=== PATIENT | female | born 1965 | race Caucasian/White ===

== ENCOUNTER 2022-03-14 11:44 | Emergency (ER) | payer BC, SELFPAY ==
[2022-03-14 11:47] VITALS: BP 147/88; PULSE 96; RESP 16; TEMP 36.3; O2SAT 98; BMI 31.8
[2022-03-14 11:58] VITALS: BP 137/89; PULSE 100; RESP 16; O2SAT 99
--- NOTE | 2022-03-14 12:21 | EKG12_ITS ---
Test Reason : DIZZINESS Blood Pressure : / mmHG Vent. Rate : 080 BPM Atrial Rate : 080 BPM P-R Int : 140 ms QRS Dur : 080 ms QT Int : 374 ms P-R-T Axes : 043 052 024 degrees QTc Int : 431 ms Normal sinus rhythm Normal ECG Confirmed by TYRONE DESIR, MELECIO ([id number]), features editor ALYSE CASAS ([id number]) on 03/17/2022 10:59:51 AM Referred By: Confirmed By:MELECIO HANSEN MD
--- NOTE | 2022-03-14 12:21 | CT_ITS ---
STUDY: CT BRAIN WITHOUT CONTRAST REASON FOR EXAM: Female, 56 years old. Dizziness RADIATION DOSAGE (If Supplied By Facility): CTDIvol = ( 44.99 ) mGy, DLP = ( 762.36 ) mGycm TECHNIQUE: Transaxial CT imaging of the brain was performed without administration of intravenous contrast material. Individualized dose optimization techniques were used for this CT. COMPARISON: No relevant priors. FINDINGS: Normal soft tissue structures. There is hyperostosis frontalis internus. Normal size ventricles and extra-axial spaces for the patient''s age. Normal white matter tracts of the cerebral hemispheres. Normal basal ganglia and thalami. Normal brainstem. Normal cerebellum. There is no intracranial hemorrhage. There are no findings of an acute ischemic infarction. There is partial opacification of the inferior aspect of the left maxillary sinus. Mucosal thickening of the ethmoid sinuses. CT/Brain/Head without Contrast IMPRESSION: Normal unenhanced CT scan of the brain. Partial opacification of the inferior aspect of the left maxillary sinus and mucosal thickening of the ethmoid sinuses. Electronically Signed: David Singleton MD at 12:52 EDT ,
--- NOTE | 2022-03-14 12:22 | EX.ED.DYSGE1 ---
HPI History of Present Illness Chief Complaint: Dizziness Informant: patient Onset/Context/Timing Onset: Today Current Severity: Mild Maximum Severity: Mild Narrative Narrative: 36-year-old female complaining of room spinning dizziness with associated nausea. She has had some intermittent headaches recently. No falls or head trauma. She really denies any significant past medical history. She is on no blood thinners. States her daughter has had vertigo multiple times in the past. Patient's symptoms started 715 this morning. Said when she went to bed last night she felt fine. Has not been sick for the last several days. Says it is a room spinning dizziness that is worse with movement of her head. Says she has hot flashes with it. Associated nausea no vomiting. No diarrhea. No trouble moving her arms or legs. She also felt like her left ear has been clogged lately. Prior similar symptoms: No Recent Illness/Hospitalization: No PFSH PFSH Medical History Abdominal hernia Carpal tunnel syndrome on both sides Medical History no medical history Home Medications Bioflex 03/14/22 [History Last Taken Unknown] Multi Vitamin 03/14/22 [History Last Taken Unknown] calcium-vitamin D3 03/14/22 [History Last Taken Unknown] meclizine 25 mg chewable tablet (Antivert) 25 mg PO TID #20 tabs 03/14/22 [Rx Last Taken Unknown] ondansetron 4 mg disintegrating tablet 4 mg PO Q6H #7 tabs 03/14/22 [Rx Last Taken Unknown] vitamin B complex 03/14/22 [History Last Taken Unknown] Allergy/AdvReac Type Severity Reaction Status Date / Time codeine Allergy Hives Verified 03/14/22 11:46 influenza virus vaccine ts Allergy Other Verified 03/14/22 11:46 [id number] (36 mos,up) [From Fluarix] Penicillins Allergy Hives Verified 03/14/22 11:46 prednisone Allergy Hives Verified 03/14/22 11:46 Surgical History H/O dilation and curettage H/O: hysterectomy Tubal ligation status Social History Smoking Status: Never smoker ROS ROS ED ROS Narrative Headaches. Room spinning dizziness. Nausea. Review of Systems ROS Unobtainable: Denies due to encephalopathy Eyes Eyes: Denies blurry vision ENT ENT ED: Denies ear pain Cardiovascular Cardiovascular: Denies chest pain Respiratory/Chest Respiratory/Chest: Denies cough Gastrointestinal Gastrointestinal: Denies abdominal pain Genitourinary Genitourinary ED: Denies dysuria Musculoskeletal Musculoskeletal: Denies arthralgias Neurologic Neurologic: Reports headache(s) Psychiatric Psychiatric: Denies anxiety Endocrine Endocrinology: Denies cold intolerance Hematologic/Lymphatic Hematologic/Lymphatic: Reports none Allergic/Immunologic Allergic/Immunologic ED: Denies mouth swelling or tongue swelling EXAM Physical Exam Narrative Exam Narrative: 56-year-old female vital signs are stable afebrile. H EENT exam unremarkable atraumatic. Pupils round reactive light. No facial droop. Normal speech. Neck nontender no lymphadenopathy. Lungs clear to auscultation. Heart regular rhythm rate about 95 no murmur. Chest were nontender. Abdomen soft nontender. Moving all 4 extremities. 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 Dorsi plantarflexion intact. No drift. Fingertip to nose within normal limits. Neurologically she is awake alert with no focal motor deficits. Positive Hallpike. NIH score is 0. Const Vital Signs: 03/14/22 11:47 03/14/22 11:58 03/14/22 12:00 Temperature 97.4 F L Temperature Source Temporal Pulse Rate 96 100 Respiratory Rate 16 16 Respiratory Effort Normal Non-Labored Respiratory Pattern Normal Blood Pressure 147/88 H 137/89 H Blood Pressure Mean 107 105 Pulse Ox 98 99 Oxygen Delivery Method Room Air Room Air 03/14/22 13:00 03/14/22 15:00 Temperature Temperature Source Pulse Rate 77 74 Respiratory Rate 11 L 14 Respiratory Effort Respiratory Pattern Blood Pressure 108/75 120/74 Blood Pressure Mean 86 89 Pulse Ox 98 98 Oxygen Delivery Method Room Air Room Air Positive well nourished and well developed; Negative for cachectic, contractures or unkempt General Appearance ED: well developed and NAD; Negative for unkempt, cachectic, contractures, cyanotic or diaphoretic Nutritional Appearance: Negative for cachectic HEENT Reports moist mucous membranes Negative for trauma or tenderness Eyes PERRL and EOMs intact bilaterally General Eye ED: Negative for pale conjunctiva or scleral icterus Neck no lymphadenopathy, supple and no JVD General: Negative for tenderness Chest Wall inspection of chest normal and palpation of chest normal Chest: Negative for other Resp normal respiratory effort and clear to auscultation bilaterally Effort and Inspection: Negative for retractions Auscultation: Negative for rales, rhonchi or wheezes Cardio regular rate, regular rhythm, S1 normal heart sound, S2 normal heart sound and no murmurs Palpation: Negative for palpable S3 Rate: Negative for bradycardia Rhythm: Negative for abnormal rhythm GI normal to inspection, nondistended, normoactive bowel sounds, non-tender, non-distended and no masses Inspection: Negative for abdominal distention Auscultation: normoactive bowel sounds Palpation: soft; Negative for tender Back/Spine no CVA tenderness General Back: Negative for CVA tenderness Cervical Spine: Negative for cervical spine tenderness Thoracic Spine / Upper Back: Negative for thoracic spinal tenderness Lumbar Spine / Lower Back: Negative for lumbar spinal tenderness Extremity normal to inspection General Extremety ED: Negative for edema or tenderness General Extremity: Negative for edema Neuro oriented x3, CN's II-XII intact bilaterally and no sensory deficits noted Sensorium / Orientation: alert; Negative for orientation impaired, lethargic or stuporous Motor Exam: strength 5/5 throughout Psych mental status grossly normal Appearance: Negative for unkempt Attitude: No agitated Skin no rashes or lesions noted and no wounds General Skin Exam: Negative for elasticity normal Lesions: No lesion noted Rashes: No rashes noted Trauma: Negative for abrasion Wounds: Negative for wounds noted MDM MDM MDM Narrative Medical decision making narrative: 56-year-old female with vertigo-like symptoms. She also has cerumen impaction in both ears. Debrox to be placed ears will be irrigated. She will go undergo work-up due to her recent headaches and vertigo-like symptoms. Exam otherwise is benign. She will be treated with Ativan for her dizziness. Repeat exam at 335 patient doing well. Her dizziness is improved. Nurse placed Debrox irrigated both ears I then tried myself and was able get a fair amount of wax on the right and some on the left the left has a lot more wax than the right. She will follow-up with ENT to have the cerumen cleaned out. She will be placed on Antivert for vertigo and Zofran for nausea. I explained to her and her family that the wax impaction may or may not be related to her vertigo or could be that she just has vertigo and is unrelated. Lab Data Attestation: I reviewed the patient's lab results. Lab results narrative: CBC normal white count of 5. H&H of 13.9 and 40. Electrolytes show a gap of 5 normal BUN and creatinine. Glucose of 112. CAT scan of the brain shows no acute abnormality as read by the radiologist. Labs: Laboratory Results - last 24 hr 03/14/22 03/14/22 12:30 12:30 WBC 5.0 RBC 4.40 Hgb 13.9 Hct 40.5 MCV 92.0 MCH 31.6 MCHC 34.3 RDW Std Deviation 42.4 RDW Coeff of Mey 12.6 Plt Count 260 MPV 10.5 Immature Gran % (Auto) 0.800 Neut % (Auto) 61.9 Lymph % (Auto) 27.4 [place] % (Auto) 8.5 Eos % (Auto) 1.0 Baso % (Auto) 0.4 Absolute Neuts (auto) 3.1 Absolute Lymphs (auto) 1.36 Nucleated RBC % 0 Sodium 141 Potassium 4.3 Chloride 108 H Carbon Dioxide 28.0 Anion Gap 5 BUN 16 Creatinine 0.83 Estim Creat Clear Calc 72.54 Est GFR (MDRD) Af Amer 92 Est GFR (MDRD) Non-Af 76 BUN/Creatinine Ratio 19.3 Glucose 112 H Calcium 9.6 Radiography Diagnostic Testing: Clinical Impression(s) from Imaging Studies Brain CT 03/14/22 12:21 IMPRESSION: Normal unenhanced CT scan of the brain. Partial opacification of the inferior aspect of the left maxillary sinus and mucosal thickening of the ethmoid sinuses. Electronically Signed: David Singleton MD at 12:52 EDT , Rhythm Strip Rhythm Strip: Sinus Rhythm Rate: 80 Ectopy: None EKG Initial EKG: Attestation: I personally reviewed and interpreted this EKG as follows: Interpretation: Sinus Rhythm and No Acute Injury Pattern Comments: Normal sinus rhythm rate of 80 no acute signs of PR or ischemia. Discharge Plan Triage Chief Complaint: Dizziness ED Provider: Reginald Nolasco Dx/Rx/DC Orders Clinical Impression: Vertigo, Impacted ear wax, Dizziness Instructions: Impacted Earwax, ED BPV Vertigo Prescriptions: New meclizine [Antivert] 25 mg tablet,chewable 25 mg PO TID Qty: 20 0RF ondansetron 4 mg tablet,disintegrating 4 mg PO Q6H Qty: 7 0RF No Action Bioflex Multi Vitamin calcium-vitamin D3 vitamin B complex Primary Care Provider: Care Physician,No Primary Referrals: Jonas Miller MD [Med Staff - Active Staff] - As soon as possible [facility] Doctor,Out of [Non-Staff] - Activity Restrictions/Additional Instructions: You have vertigo. We will treat you with a medication called Antivert for that. Zofran if you needed for nausea. If you do not you do not have to use the Zofran. You also have significant earwax impaction. The right side has been fairly cleared out. There is still a lot in the left. Use eardrops either Debrox or Cerumenex daily. He can get those [id number] at any pharmacy. This will help dry up and clear out the wax. Also follow-up with Dr. Jonas Miller who is an ear nose and throat doctor across the street. They can recheck your ears and clean them out. They also can do procedures to help with the vertigo if its not improving. Disposition Disposition: Home, Self Care
[2022-03-14] MEDS: LORazepam 2 MG/ML Syringe 1 MG IV (12:32)
[2022-03-14 12:47] LABS: Absolute Lymphocyte Count 1.36 X10^3/uL (0.83-4.51); Absolute Neutrophil Count 3.1 X10^3/uL (2.0-7.7); Basophil# 0.02 X10^3/uL; Basophil% 0.4 % (0-1); Eosinophil# 0.05 X10^3/uL; Hematocrit 40.5 % (37-47); Hemoglobin 13.9 g/dL (12.0-15.0); Lymphocyte # 1.36 X10^3/ul (0.83-4.51); Lymphocyte % 27.4 % (19-41); Mean Corp Hgb Conc 34.3 g/dL (32-36); Mean Corpuscular Hgb 31.6 pg (27.0-32.0); Mean Platelet Vol. 10.5 fl (6.2-12.0); Monocyte# 0.42 X10^3/uL; Monocyte% 8.5 % (0-10); NRBC Flagged by Analyzer 0 % (0-5); Neutrophil # 3.08 X10^3/uL (2.7-7.7); Neutrophil % 61.9 % (47-70); Platelet Count 260 K/mm3 (150-450); RBC Distribution Width CV 12.6 % (11.6-14.6); RBC Distribution Width SD 42.4 fl (35.1-43.9)
[2022-03-14 12:58] LABS: Anion Gap 5 (5-15); BUN 16 mg/dL (7-18); BUN/Creat Ratio 19.3 RATIO (10-20); Calcium,Total 9.6 mg/dL (8.5-10.1); Chloride 108 mmol/L (98-107); Creatinine, Serum 0.83 mg/dL (0.55-1.02); EST Glomerular Filtration Rate 76 mL/min (>60); Est Glom Filt Rate - Afr Amer 92 mL/min (>60); Estimated Creatinine Clearance 72.54 ml/min; Glucose 112 mg/dL (74-106); Potassium 4.3 mmol/L (3.5-5.1); Sodium Level 141 mmol/L (136-145)
[2022-03-14 13:00] VITALS: BP 108/75; PULSE 77; RESP 11; O2SAT 98
[2022-03-14] MEDS: Carbamide Peroxide 15 ML Bottle 5 DRP OTIC (13:15)
--- NOTE | 2022-03-14 14:21 | CM.ED ---
SW Note Referral Source: Case Find Referral Reason: No Primary Care Physician (PCP) SW reviewed chart and noted that patient has no PCP. SW provided patient with list of [facility] and [facility] Physician List for reference. Patient has just moved from [place] and wants a local MD. No other issues or concerns voiced at this time. SW remains available for any additional needs. Plan: Provided patient with PCP information Bouchra MIDDLETON
[2022-03-14 15:00] VITALS: BP 120/74; PULSE 74; RESP 14; O2SAT 98
[2022-03-14 16:01] VITALS: BP 120/74; PULSE 71
== END 2022-03-14 16:01 | disposition home or self-care (01) ==
PROVIDERS: Emergency Provider Emergency Medicine; Visit Provider Emergency Medicine
DX: R42 Dizziness and giddiness (principal); H61.23 Impacted cerumen, bilateral; R51.9 Headache, unspecified
CPT/HCPCS: 70450; 80048; 85025; 93005; 96374; 99285; A4216

== ENCOUNTER 2025-06-17 17:34 | Emergency (ER) | payer BC, SELFPAY ==
[2025-06-17 17:36] VITALS: BP 141/83; PULSE 87; RESP 18; TEMP 36.2; O2SAT 98; BMI 29.0
[2025-06-17 17:45] VITALS: O2SAT 96
--- OUTSIDE RECORDS SUMMARY | 2025-06-17 17:56 | XMS RPT_ITS | CCD ---
Author Organization [facility] Inform ion Partnership [facility] Care Team Providers Care Prosthetist Name Role Phone VAGNIJAZ, AIDE L Unavailable Unavailable VAGNIERAIDE L Unavailable Unavailable STATKRISTA TAYLOR Unavailable Unavailable Serve, Oliverio Velasco Primary Care Provider GARRETT CASAS Referring Unavailable SERVE, OLIVERIO VELASCO Primary Care Unavailable GARRETT CASAS Admitting Unavailable SERVEOLIVERIO Primary Care Unavailable Serve, Oliverio Velasco Primary Care Provider OLIVERIO CHANG Primary Care Unavailable PATRICIA HALL Attending Unavailable Serve DO, Oliverio Velasco Primary Care Provider JAYASHREE BERGER Attending Unavailable SERVE, OLIVERIO VELASCO Primary Care Unavailable Reginald Nolasco Attending Unavailable Care Physician, No Primary Primary Care Unava ilable Allergies Allergy Classification Reported Allergen(s) Allergy Type Date of Onset Reaction(s) Facility (9 sources) Codeine; Translations: [CODEINE] Drug Allergy 0 [facility] (9 sources) Penicillins; Translations: [PENICILLINS] Propensity to adverse reactions to drug 0 [facility] (8 sources) predniSONE; Translations: [PREDNISONE] Drug Allergy 0 [facility] (2 sources) Influenza virus vaccine; Translations: [influenza virus vaccine ts [id number] (36 mos,up)] Drug Allergy 2 Other [facility] Rep[facility] (1 source) Codeine Drug Allergy 2 [facility] (1 source) predniSONE Drug Allergy 2 [facility] Medications Current Medications Medication Drug Class(es) Dates Sig (Normalized) Sig (Original) acetaminophen 325 mg / HYDROcodone bitartrate 5 mg oral tablet (1 source) Opioid Agonist Start: 09-20-2020 End: 09-23-2020 take 1 tablet by mouth every four hours as needed for pain HYDROcodone-aceta minophen (NORCO) 5-325 mg per tablet Indications: Post-op pain Take 1 (one) tablet by mouth every 4 (four) hours as needed for pain . 10 tablet 0 09/20/2020 09/23/2020 Active ascorbic acid 500 mg oral tablet (4 sources) Vitamin C take 1 tablet by mouth once daily in the morning ascorbic acid, vitamin C, (VITAMIN C) 500 MG tablet Take 500 mg by mouth every morning . 0 Active End: 09-18-2020 ascorbic acid (VITAMIN C ORA L) Take by mouth daily . 0 09/18/2020 Discontinued (Error) ascorbic acid/collagen hydr (COLLAGEN PLUS VITAMIN C ORAL) (3 sources) take 1 tablet by karine th once daily in the morning ascorbic acid/collagen hydr (COLLAGEN PLUS VITAMIN C ORAL) Take 1 tablet by mouth every morning . 0 Active take 1 tablet by karine th once daily in the morning ascorbic acid/collagen hydr (COLLAGEN PL US VITAMIN C ORAL) Take 1 tablet by mouth every morning . 0 Suspended Bioflex (1 source) Start: 03-14-2022 Bioflex Active March 14, 2022 12:00am calcium carbonate 1500 mg / cholecalciferol 200 unt oral tablet (3 sources) Vitamin D take 1 tablet by mouth once daily in the morning calcium carbonate-vitami n D3 600 mg-5 mcg (200 unit) per tablet Take 1 tablet by mouth every morning . 0 Active calcium-vitamin D3 (1 source) Start: 03-14-2022 calcium-vitami n D3 Active March 14, 2022 12:00am cetirizine hydrochloride 10 mg oral tablet (3 sources) Histamine-1 Receptor Antagonist take 1 tablet by mouth once daily in the morning cetirizine (ZYRTEC) 10 MG tablet Take 10 mg by mouth every morning . 0 Active meclizine hydrochloride 25 mg chewable tablet (1 source) Antiemetic Start: 03-14-2022 take 1 tablet by mouth three times daily Meclizine (Antivert) 25 mg tablet,chewable Active 25 MG PO THREE TIMES A DAY March 14, 2022 12:00am multivit,calc,mins/iro n/folic (WOMEN'S ONE DAILY ORAL) (3 sources) take 1 tablet by mouth once daily in the morning, then take 1 tablet by mouth once daily multivit,calc,mi ns/iron/folic (WOMEN'S ONE DAILY ORAL) Take 1 tablet by mouth every morning . 0 Active take 1 tablet by karine th once daily in the morning, then take 1 tablet by mouth once daily multivit,calc,mins/iron/folic (WOMEN'S O NE DAILY ORAL) Take 1 tablet by mouth every morning . 0 Suspended Multivitamin preparation (1 source) Start: 03-14-2022 Multi Vitamin Active March 14, 2022 12:00am ondansetron 4 mg disintegrating oral tablet (4 sources) Serotonin-3 Receptor Antagonist Start: 03-14-2022 take 4 mg by mouth every six hours Ondansetron Active 4 MG PO EVERY 6 HOURS March 14, 2022 12:00am Start: 09-19-2020 End: 09-19-2020 ondansetron (ZOFRAN) injecti on Start: 01-18-2020 End: 01-18-2020 take 1 tablet by mouth once 4 mg, Oral, Once, 01/17 at 0800, For 1 dose, Pre-Procedure Orally disintegrating tablet: Open blister pack and place tablet on the tongue; tablet is formulated to dissolve on the tongue without water; do not split tablet. Formulation requires tablet remain in sealed package until immediately prior to dose being administered. Start: 01-18-2020 End: 01-18-2020 4 mg, Intravenous, Every 15 min PRN, nausea, vomiting, Starting Thu01/18/20 at 0701, For 2 doses, PACU (only) Do not give more than 2 doses. Administer first as needed for nausea/vomiting, or as directed by anesthesia rutin/hesp/bioflav/C/herbal1 96 (BIOFLEX ORAL) (3 sources) take 1 tablet by mouth once daily in the morning rutin/hesp/bioflav/C/[id number] (BIOFLEX ORAL) Take 1 tablet by mouth every morning . 0 Active take 1 tablet by karine th once daily in the morning rutin/hesp/bioflav/C/kwqdty817 (BIOFLEX ORAL) Take 1 tablet by mouth every morning . 0 Suspended Vitamin B Complex (1 source) Start: 03-14-2022 vitamin B comp lisette Active March 14, 2022 12:00am Completed/Discontinued Medications Medication Drug Class(es) Dates Sig (Normalized) Sig (Original) acetaminophen 325 mg oral tablet (3 sources) Start: 09-19-2020 End: 09-20-2020 take 1 tablet by mouth every four hours 650 mg, Oral, Every 4 hours, First dose on Thu09/19/20 at 1500 Start: 09-19-2020 End: 09-19-2020 take 975 mg by mouth once 975 mg, Oral, Once, 09/19 at 1015, For 1 dose, Pre-Procedure Start: 01-18-2020 End: 01-18-2020 take 975 mg by mouth once 975 mg, Oral, Once, 01/17 at 0800, For 1 dose, Pre-Procedure calcium carb/D3/magnesium/zinc (calcium carb-D3-mag [id number]) [phone] ae-rlwr-wn-mg Tab (1 source) End: 09-18-2020 calcium carb/D3/magnesium/zinc (calcium carb-D3-mag act62-qfcw) [phone] bw-keyp-uh-mg Tab Take by mouth daily . 0 09/18/2020 Discontinued (Error) calcium chloride 0.0014 meq/ml / potassium chloride 0.004 meq/ml / sodium chloride 0.103 meq/ml / sodium lactate 0.028 meq/ml injectable solution (4 sources) Start: 09-19-2020 End: 09-20-2020 take 125 mL intravenous route every hour 125 mL/hr, Intravenous, Continuous, Starting Thu09/19/20 at 1430 Discontinue once patient tolerating regular diet Start: 09-19-2020 End: 09-19-2020 lactated Ringers infusion Start: 01-18-2020 End: 01-18-2020 lactated Ringers infusion ceFAZolin 2000 mg injection (1 source) Cephalosporin Antibacterial Start: 09-19-2020 End: 09-19-2020 ceFAZolin (ANCEF) IVPB 2 g (premix) 1 ml dexamethasone phosphate 4 mg/ml injection (1 source) Corticosteroid Start: 09-19-2020 End: 09-19-2020 dexamethasone (DECADRON) injection 2 ml famotidine 10 mg/ml injection (1 source) Histamine-2 Receptor Antagonist Start: 01-18-2020 End: 01-18-2020 20 mg, Intravenous, Once, Thu01/18/20 at 0800, For 1 dose, Pre-Procedure Aseptically dilute dose of famotidine injection with 0.9% NaCl to a total volume of either 5 ml or 10 ml and inject over 2 minutes. Start: 01-18-2020 End: 01-18-2020 20 mg, Intravenous, Once, We d 01/18/20 at 0800, For 1 dose, Pre-Procedure Aseptically dilute dose of famotidine injection with 0.9% NaCl to a total volume of either 5 ml or 10 ml and inject over 2 minutes. 20 ml fentaNYL 0.05 mg/ml injection (2 sources) Opioid Agonist Start: 09-19-2020 End: 09-19-2020 fentaNYL (SUBLIMAZE) injection Start: 01-18-2020 End: 01-18-2020 50 mcg, Intravenous, Every 5 min PRN, Pain, Starting Thu01/18/20 at 0701, For 4 doses, PACU (only) [] Do not give more than 100 mcg while in PACU. gabapentin 300 mg oral capsule (1 source) Anti-epileptic Agent Start: 09-19-2020 End: 09-19-2020 take 300 mg by mouth once 300 mg, Oral, Once, Thu09/19/20 at 1015, For 1 dose, Pre-Procedure Start: 09-19-2020 End: 09-19-2020 take 300 mg by mouth once 300 mg, Oral, Once, 09/19 at 1015, For 1 dose, Pre-Procedure ginkgo biloba extract 120 mg oral capsule (3 sources) End: 10-01-2021 take 1 tablet by mouth once daily in the morning ginkgo biloba 120 mg Tab Take 120 mg by mouth every morning . 0 10/01/2021 Discontinued (Patient's Request) take 1 tablet by karine once daily in the morning ginkgo biloba 120 mg Tab Take 120 mg by mouth every morning . 0 Active 0.5 ml HYDROmorphone hydrochloride 1 mg/ml prefilled syringe (1 source) Opioid Agonist Start: 09-19-2020 End: 09-19-2020 0.25 mg, Intravenous, Every 5 min PRN, Pain, Starting Thu09/19/20 at 1238, For 6 doses, PACU (only) [] Give if fentanyl not effective or not ordered. [] Do not give more than 1.5 mg total. 1 ml ketorolac tromethamine 30 mg/ml injection (1 source) Nonsteroidal Anti-inflammatory Drug, Cyclooxygenase Inhibitor Start: 09-19-2020 End: 09-19-2020 ketorolac (TORADOL) injection ketorolac (TORADOL) injection 30 mg (1 source) Start: 09-19-2020 End: 09-20-2020 take 30 mg intravenous route every six hours ketorolac (TORADOL) injection 30 mg labetalol hydrochloride 5 mg/ml injectable solution (1 source) beta-Adrenergic Madeleine Start: 01-18-2020 End: 01-18-2020 5 mg, Intravenous, Every 5 min PRN, SBP greater than 160 or DBP greater than 90, Starting Thu01/18/20 at 0701, For 4 doses, PACU (only) [] Do not give more than 20 mg total. [] Hold for HR less than 50. Lidocaine (2 sources) Antiarrhythmic, Amide Local Anesthetic Start: 09-19-2020 End: 09-19-2020 lidocaine 20 mg/mL (2 %) injection Start: 09-19-2020 End: 09-19-2020 lidocaine 10 mg/mL (1 %) inj ection 0.2 mL MULTIVITAMIN WITH IRON ORAL (1 source) End: 09-18-2020 MULTIVITAMIN WITH IRON ORAL Take by mouth daily . 0 09/18/2020 Discontinued (Error) naloxone (NARCAN) injection 0.1 mg (3 sources) Start: 09-19-2020 End: 09-20-2020 naloxone (NARCAN) injection 0.1 mg Start: 01-18-2020 End: 01-18-2020 naloxone (NARCAN) injection 0.1 mg Start: 01-18-2020 End: 01-18-2020 naloxone (NARCAN) injection 0.1 mg ondansetron (ZOFRAN-ODT) disintegrating tablet 4 mg (1 source) Start: 09-19-2020 End: 09-20-2020 take 1 tablet by mouth every six hours as needed ondansetron (ZOFRAN-ODT) disintegrating tablet 4 mg oxyCODONE hydrochloride 5 mg oral tablet (4 sources) Opioid Agonist Start: 09-19-2020 End: 09-20-2020 take 5-10 mg by mouth every four hours as needed 5-10 mg, Oral, Every 4 hours PRN, moderate to severe pain, Starting Thu09/19/20 at 1404 [] Initiate with 5 mg oral every 4 hours prn moderate to severe pain. [] For unrelieved pain, may repeat 5 mg oral dose within 60 minutes of initial dose. [] If pain is RELIEVED after repeat dose, change to 10 mg oral every 4 hours prn moderate to severe pain. [] If pain is UNrelieved after repeat dose, or patient requires dose reduction, call physician. Start: 09-19-2020 End: 09-19-2020 take 5 mg under the tongue every twenty-four hours as needed 5 mg, Sublingual, Once as needed, moderate to severe pain, Pain, Starting Thu09/19/20 at 1238, For 1 dose, PACU (only) Use first if unable to tolerate oral route. Start: 01-18-2020 End: 01-18-2020 take 1 tablet by mouth every twenty-four hours as needed 5 mg, Oral, Once as needed, moderate to severe pain, Pain, Starting Thu01/18/20 at 0701, For 1 dose, PACU (only) While in PACU when tolerating orals. Use oral route first, if tolerated. Start: 01-18-2020 End: 01-18-2020 take 10 mg under the tongue every twenty-four hours as needed 10 mg, Sublingual, Once as needed, moderate to severe pain, Pain, Starting Thu01/18/20 at 0701, For 1 dose, PACU (only) Use first if unable to tolerate oral route. polyethylene glycol [id number] mg powder for oral solution (1 source) Osmotic Laxative Start: 09-20-2020 End: 09-20-2020 polyethylene glycol (MIRALAX) powder 17 g promethazine hydrochloride 25 mg oral tablet (1 source) Phenothiazine Start: 01-18-2020 End: 01-18-2020 take 1 tablet by mouth every twenty-four hours as needed 12.5 mg, Oral, Once as needed, nausea, vomiting, Starting 01/18/20 at 0701, For 1 dose, PACU (only) Administer if ondansetron (Zofran) ineffective or not ordered, and patient can tolerate oral administration, or as directed by anesthesia, as needed for nausea/vomiting 10 ml propofol 10 mg/ml injection (2 sources) General Anesthetic Start: 09-19-2020 End: 09-19-2020 propofol (DIPRIVAN) infusion Start: 09-19-2020 End: 09-19-2020 propofoL (DIPRIVAN) injectio n rocuronium bromide 10 mg/ml injectable solution (1 source) Nondepolarizing Neuromuscular Madeleine Start: 09-19-2020 End: 09-19-2020 rocuronium (ZEMURON) injection 72 hr scopolamine 0.0139 mg/hr transdermal system (2 sources) Anticholinergic Start: 09-19-2020 End: 09-20-2020 apply 1 dose transdermal route once 1 patch, Transdermal, Once, 09/19/20 at 1015, For 1 dose, Pre-Procedure Apply to left mastoid. Start: 01-18-2020 End: 01-18-2020 scopolamine (TRANSDERM-SCOP) 1 mg over 3 days patch - ADS Override Pull succinylcholine chloride (ANECTINE) injection (1 source) Start: 09-19-2020 End: 09-19-2020 succinylcholine chloride (ANECTINE) injection 5 ml sugammadex 100 mg/ml injection (1 source) Start: 09-19-2020 End: 09-19-2020 sugammadex (BRIDION) injection tetrahydrocannabinol 5 mg oral capsule (1 source) Cannabinoid Start: 09-19-2020 End: 09-19-2020 5 mg, Oral, Once, 09/19/20 at 1015, For 1 dose, Pre-Procedure administer 30-60 minutes prior to surgery Start: 09-19-2020 End: 09-19-2020 5 mg, Oral, Once, Wed 1 at 1015, For 1 dose, Pre- Procedure administer 30-60 minutes prior to surgery vecuronium bromide 1 mg/ml injectable solution (1 source) Nondepolarizing Neuromuscular Madeleine Start: 09-19-2020 End: 09-19-2020 vecuronium (NORCURON) injection vitamin a 2.4 mg oral capsule (3 sources) Vitamin A End: 10-01-2021 take 1 capsule by mouth once daily in the morning vitamin A 8000 UNIT capsule Take 8,000 Units by mouth every morning . 0 10/01/2021 Discontinued (Patient's Request) VITAMIN A ORAL (1 source) End: 09-18-2020 VITAMIN A ORAL Take by mouth daily . 0 09/18/2020 Discontinued (Error) vitamin e 450 mg oral capsule (3 sources) End: 10-01-2021 take 1 capsule by mouth once daily in the morning vitamin E 1000 UNIT capsule Take 1,000 Units by mouth every morning . 0 10/01/2021 Discontinued (Patient's Request) Problems Active Problems Problem Classification Problem Date Documented Date Episodic/Chronic Conditions associated with dizziness or vertigo (3 sources) Dizziness; Translations: [Dizziness and giddiness] Onset: 03-18-2022 Episodic Nausea and vomiting (1 source) Nausea and vomiting; Translations: [Nausea with vomiting, unspecified] Episodic Other connective tissue disease (1 source) Radial styloid tenosynovitis; Translations: [Radial styloid tenosynovitis [de Quervain]] Episodic Other ear and sense organ disorders (1 source) Impacted cerumen; Translations: [Impacted cerumen, unspecified ear] Episodic Other ear and sense organ disorders (1 source) Wax in ear canal; Translations: [Impacted cerumen, unspecified ear] Episodic Other female genital disorders (4 sources) Simple endometrial hyperplasia; Translations: [Benign endometrial hyperplasia] Onset: 09-19-2020 09-19-2020 Chronic Other female genital disorders (1 source) 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; Translations: [Benign endometrial hyperplasia] Onset: 09-19-2020 09-19-2020 Chronic Other female genital disorders (3 sources) 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; Translations: [Simple endometrial hyperplasia without atypia] Onset: 09-19-2020 09-19-2020 Other nervous system disorders (1 source) Postoperative pain ; Translations: [Post-op pain] Episodic Past or Other Problems Problem Classification Problem Date Documented Da te Episodic/Chronic Unclassified (2 sources) Encounter for screening mammogram for malignant neoplasm of breast; Translations: [ENC SCR MAMMO MALNITISH NEOP] Onset: 02-24-2017 Episodic Results Test Name Value Interpretation Reference Range Facility 12 Lead EKGon 03-14-2022 12 Lead EKG [facility] Cardiovascular Services [address] [place] [address] 12 Lead EKG 03/14/22 1235 MR#: [id number] Acct: [id number] Name: GENO MENDEZ Rep #: [id number] : 1965 56 From: Mannie Branch MD Attending Dr: Status: DEP ER Ordering Dr: Reginald Nolasco MD Date: 03/14/22 Location: ED Sex: F C Admitted: Test Reason : DIZZINESS Blood Pressure : / mmHG Vent. Rate : 080 BPM Atrial Rate : 080 BPM P-R Int : 140 ms QRS Dur : 080 ms QT Int : 374 ms P-R-T Axes : 043 052 024 degrees QTc Int : 431 ms Normal sinus rhythm Normal ECG Confirmed by TYRONE DESIR, MANNIE ([id number]), online editor ALYSE CASAS ([id number]) on 03/17/2022 10:59:51 AM Referred By: Confirmed By:MANNIE BRANCH MD 03/17/22 1059 Date Mannie Branch MD CC: Dr. Reginald Nolasco MD; No Primary Care Physician Signed Normal [facility] Absolute lymphocyte counton 03-14-2022 Lymphocytes Auto (Unsp spec) [#/Vol] 1.36 10*3/uL 0.83-4.51 [facility] Work Phone: Basic Metabolic Profile (BMP )on 03-14-2022 BUN/CRE 19.3 RATIO Normal 10-20 [facility] Comment on above: Performed By: #### L 100.0100, L500.2500 #### [facility] Laboratory [address] [place], [address] CA,Total 9.6 mg/dL Normal 8.5-10.1 [facility] Comment on above: Performed By: #### L 100.0100, L500.2500 #### [facility] Laboratory [address] [place], [address] Chloride [Moles/Vol] 108 mmol/L High 98-107 [facility] Comment on above: Performed By: #### L 100.0100, L500.2500 #### [facility] Laboratory [address] [place], [address] CO2 [Moles/Vol] 28.0 mmol/L Normal 21.0-32.0 [facility] Comment on above: Performed By: #### L 100.0100, L500.2500 #### [facility] Laboratory [address] [place], [address] Creatinine [Mass/Vol] 0.83 mg/dL Normal 0.55-1.02 [facility] Comment on above: Result Comment: The validity of the calculated GFR GFRAA in patients over 70 years has not been determined. Clinical correlation is essential. Performed By: #### L 100.0100, L500.2500 #### [facility] Laboratory [address] [place], [address] ECRCL 72.54 ml/min Normal [facility] Comment on above: Performed By: #### L 100.0100, L500.2500 #### [facility] Laboratory [address] [place], [address] EST GFR - AA 92 mL/min Normal >60 [facility] Comment on above: Result Comment: Afri can Japanese GFR Calc Performed By: #### L 100.0100, L500.2500 #### [facility] Laboratory [address] [place], [address] GAP 5 Normal 5-15 [facility] Comment on above: Performed By: #### L 100.0100, L500.2500 #### [facility] Laboratory [address] [place], [address] GFR/1.73 sq M.predicted among non-blacks MDRD (S/P/Bld) [Vol rate/Area] 76 mL/min/{1.73_m2} Normal >60 [facility] Comment on above: Result Comment: Non- GFR Calc Performed By: #### L 100.0100, L500.2500 #### [facility] Laboratory [address] [place], [address] Glucose [Mass/Vol] 112 mg/dL High 74-106 [facility] Comment on above: Result Comment: Fast ing Glucose result from 100 to 125 mg/dL suggests IMPAIRED HOMEOSTASIS per A.D.A. criteria. Performed By: #### L 100.0100, L500.2500 #### [facility] Laboratory [address] [place], [address] Potassium [Moles/Vol] 4.3 mmol/L Normal 3.5-5.1 [facility] Comment on above: Performed By: #### L 100.0100, L500.2500 #### [facility] Laboratory [address] [place], [address] Sodium [Moles/Vol] 141 mmol/L Normal 136-145 [facility] Comment on above: Performed By: #### L 100.0100, L500.2500 #### [facility] Laboratory [address] [place], [address] Urea nitrogen [Mass/Vol] 16 mg/dL Normal 7-18 [facility] Comment on above: Performed By: #### L 100.0100, L500.2500 #### [facility] Laboratory [address] [place], [address] Basophil percentageon 2021 Basophils/100 WBC (Bld) 0.4 % 0-1 [facility] Work Phone: Chloride [Moles/Vol] 108 mmol/L 98-107 [facility] Work Phone: Eosinophils/100 WBC (Bld) 1.0 % 0-5 [facility] Work Phone: Glucose [Mass/Vol] 112 mg/dL 74-106 [facility] Work Phone: Comment on above: Fasting Glucose resu lt from 100 to 125 mg/dL suggests IMPAIRED HOMEOSTASIS per A.D.A. criteria. Neutrophils (Bld) [#/Vol] 3.1 10*3/uL 2.0-7.7 [facility] Work Phone: Neutrophils/100 WBC (Bld) 61.9 % 47-70 [facility] Work Phone: Potassium [Moles/Vol] 4.3 mmol/L 3.5-5.1 [facility] Work Phone: Sodium [Moles/Vol] 141 mmol/L 136-145 [facility] Work Phone: WBC (Bld) [#/Vol] 5.0 10*3/uL 4.4-11.0 [facility] Work Phone: Blood erythrocytes count (nu mber/volume)on 03-14-2022 RBC (Bld) [#/Vol] 4.40 10*6/uL 4.2-5.4 [facility] Work Phone: Blood hemoglobin measurement (mass/volume)on 03-14-2022 Hemoglobin (Bld) [Mass/Vol] 13.9 g/dL 12.0-15.0 [facility] Work Phone: Blood lymphocytes/100 leukoc yteson 03-14-2022 Lymphocytes/100 WBC (Bld) 27.4 % 19-41 [facility] Work Phone: Blood monocytes/100 leukocyt eson 03-14-2022 Monocytes/100 WBC (Bld) 8.5 % 0-10 [facility] Work Phone: Blood platelet mean volumeon 03-14-2022 Platelet mean volume (Bld) [Entitic vol] 10.5 fL 6.2-12.0 [facility] Work Phone: Brain/Head without Contrasto n 03-14-2022 Brain/Head without Contrast [facility] Imaging Services [address] [place] [address] Brain/Head without Contrast MR#: [id number] Acct: [id number] Name: GENO MENDEZ Rep #: [id number] : 1965 F 56 From: David gorman MD PCP: Care Physician,No Primary Status: REG ER Study: Brain/Head without Contrast Date of Exam: 02/27 12/18 Exam# [id number] Ordering Dr: Reginald Nolasco MD STUDY: CT BRAIN WITHOUT CONTRAST REASON FOR EXAM: Female, 56 years old. Dizziness RADIATION DOSAGE (If Supplied By Facility): CTDIvol = ( 44.99 ) mGy, DLP = ( 762.36 ) mGycm TECHNIQUE: Transaxial CT imaging of the brain was performed without administration of intravenous contrast material. Individualized dose optimization techniques were used for this CT. COMPARISON: No relevant priors. FINDINGS: Normal soft tissue structures. There is hyperostosis frontalis internus. Normal size ventricles and extra-axial spaces for the patient''s age. Normal white matter tracts of the cerebral hemispheres. Normal basal ganglia and thalami. Normal brainstem. Normal cerebellum. There is no intracranial hemorrhage. There are no findings of an acute ischemic infarction. There is partial opacification of the inferior aspect of the left maxillary sinus. Mucosal thickening of the ethmoid sinuses. CT/Brain/Head without Contrast IMPRESSION: Normal unenhanced CT scan of the brain. Partial opacification of the inferior aspect of the left maxillary sinus and mucosal thickening of the ethmoid sinuses. Electronically Signed: David Singleton MD at 12:52 EDT , CC: Dr. Reginald Nolasco MD; No Primary Care Physician Principal Bioinformatics Specialist: Signed Normal [facility] CBC W/Diff, Automatedon 02-27 Absolute Lymph 1.36 X10 3/uL Normal 0.83-4.51 [facility] Comment on above: Performed By: #### L 100.0100, L500.2500 #### [facility] Laboratory [address] [place], [address] Absolute Neut 3.1 X10 3/uL Normal 2.0-7.7 [facility] Comment on above: Performed By: #### L 100.0100, L500.2500 #### [facility] Laboratory [address] [place], [address] Basophils/100 WBC (Bld) 0.4 % Normal 0-1 [facility] Comment on above: Performed By: #### L 100.0100, L500.2500 #### [facility] Laboratory [address] [place], [address] Eosinophils/100 WBC (Bld) 1.0 % Normal 0-5 [facility] Comment on above: Performed By: #### L 100.0100, L500.2500 #### [facility] Laboratory [address] [place], [address] Erythrocyte distribution width (RBC) [Ratio] 12.6 % Normal 11.6-14.6 [facility] Comment on above: Performed By: #### L 100.0100, L500.2500 #### [facility] Laboratory [address] [place], [address] Hematocrit (Bld) [Volume fraction] 40.5 % Normal 37-47 [facility] Comment on above: Performed By: #### L 100.0100, L500.2500 #### [facility] Laboratory [address] [place], [address] Hemoglobin (Bld) [Mass/Vol] 13.9 g/dL Normal 12.0-15.0 [facility] Comment on above: Performed By: #### L 100.0100, L500.2500 #### [facility] Laboratory [address] [place], [address] IG% 0.800 Normal 0.0-0.9 [facility] Comment on above: Result Comment: IG% - Immature Granulocytes (promyelocytes, myelocytes and metamyelocytes) > 1% indicates that a LEFT SHIFT is Present. Performed By: #### L 100.0100, L500.2500 #### [facility] Laboratory [address] [place], [address] Lymphocytes/100 WBC (Bld) 27.4 % Normal 19-41 [facility] Comment on above: Performed By: #### L 100.0100, L500.2500 #### [facility] Laboratory [address] [place], [address] MCH (RBC) [Entitic mass] 31.6 pg Normal 27.0-32.0 [facility] Comment on above: Performed By: #### L 100.0100, L500.2500 #### [facility] Laboratory [address] [place], [address] MCHC (RBC) [Mass/Vol] 34.3 g/dL Normal 32-36 [facility] Comment on above: Performed By: #### L 100.0100, L500.2500 #### [facility] Laboratory [address] [place], [address] MCV (RBC) [Entitic vol] 92.0 fL Normal 81-99 [facility] Comment on above: Performed By: #### L 100.0100, L500.2500 #### [facility] Laboratory [address] [place], [address] Monocytes/100 WBC (Bld) 8.5 % Normal 0-10 [facility] Comment on above: Performed By: #### L 100.0100, L500.2500 #### [facility] Laboratory [address] [place], [address] Neutrophils/100 WBC (Bld) 61.9 % Normal 47-70 [facility] Comment on above: Performed By: #### L 100.0100, L500.2500 #### [facility] Laboratory [address] [place], [address] Nucleated RBC (Bld) [#/Vol] 0 10*3/uL Normal 0-5 [facility] Comment on above: Performed By: #### L 100.0100, L500.2500 #### [facility] Laboratory [address] [place], [address] Platelet mean volume (Bld) [Entitic vol] 10.5 fL Normal 6.2-12.0 [facility] Comment on above: Performed By: #### L 100.0100, L500.2500 #### [facility] Laboratory [address] [place], [address] Platelets (Bld) [#/Vol] 260 10*3/uL Normal 150-450 [facility] Comment on above: Performed By: #### L 100.0100, L500.2500 #### [facility] Laboratory [address] [place], [address] RBC (Bld) [#/Vol] 4.40 10*6/uL Normal 4.2-5.4 [facility] Comment on above: Performed By: #### L 100.0100, L500.2500 #### [facility] Laboratory [address] [place], [address] RDW SD 42.4 fl Normal 35.1-43.9 [facility] Comment on above: Performed By: #### L 100.0100, L500.2500 #### [facility] Laboratory [address] [place], [address] WBC (Bld) [#/Vol] 5.0 10*3/uL Normal 4.4-11.0 [facility] Comment on above: Performed By: #### L 100.0100, L500.2500 #### [facility] Laboratory [address] [place], [address] Determination of erythrocyte mean corpuscular volume (MCV)on 03-14-2022 MCV (RBC) [Entitic vol] 92.0 fL 81-99 [facility] Work Phone: Emergency Department Summary on 03-14-2022 Emergency Department Summary [facility] Medical Records Department [address] [place] [address] Emergency Department Summary 03/14/22 MR#: [id number] Acct: [id number] Name: GENO MENDEZ Rep #: [id number] : 1965 56 From: Reginald Nolasco MD PCP: Care Physician,No Primary Status:REG ER Location: ED HPI History of Present Illness Chief Complaint: Dizziness Informant: patient Onset/Context/Timing Onset: Today Current Severity: Mild Maximum Severity: Mild Narrative Narrative: 36-year-old female complaining of room spinning dizziness with associated nausea. She has had some intermittent headaches recently. No falls or head trauma. She really denies any significant past medical history. She is on no blood thinners. States her daughter has had vertigo multiple times in the past. Patient's symptoms started 715 this morning. Said when she went to bed last night she felt fine. Has not been sick for the last several days. Says it is a room spinning dizziness that is worse with movement of her head. Says she has hot flashes with it. Associated nausea no vomiting. No diarrhea. No trouble moving her arms or legs. She also felt like her left ear has been clogged lately. Prior similar symptoms: No Recent Illness/Hospitalizat ion: No PFSH PFSH Medical History Abdominal hernia Carpal tunnel syndrome on both sides Medical History no medical history Home Medications Bioflex 03/14/22 [History Last Taken Unknown] Multi Vitamin 03/14/22 [History Last Taken Unknown] calcium-vitamin D3 03/14/22 [History Last Taken Unknown] meclizine 25 mg chewable tablet (Antivert) 25 mg PO TID #20 tabs 03/14/22 [Rx Last Taken Unknown] ondansetron 4 mg disintegrating tablet 4 mg PO Q6H #7 tabs 03/14/22 [Rx Last Taken Unknown] vitamin B complex 03/14/22 [History Last Taken Unknown] Allergy/AdvReac Type Severity Reaction Status Date / Time codeine Allergy Hives Verified 03/14/22 11:46 influenza virus vaccine ts Allergy Other Verified 03/14/22 11:46 [id number] (36 mos,up) [From Fluarix] Penicillins Allergy Hives Verified 03/14/22 11:46 prednisone Allergy Hives Verified 03/14/22 11:46 Surgical History H/O dilation and curettage H/O: hysterectomy Tubal ligation status Social History Smoking Status: Never smoker ROS ROS ED ROS Narrative Headaches. Room spinning dizziness. Nausea. Review of Systems ROS Unobtainable: Denies due to encephalopathy Eyes Eyes: Denies blurry vision ENT ENT ED: Denies ear pain Cardiovascular Cardiovascular: Denies chest pain Respiratory/Chest Respiratory/Chest: Denies cough Gastrointestinal Gastrointestinal: Denies abdominal pain Genitourinary Genitourinary ED: Denies dysuria Musculoskeletal Musculoskeletal: Denies arthralgias Neurologic Neurologic: Reports headache(s) Psychiatric Psychiatric: Denies anxiety Endocrine Endocrinology: Denies cold intolerance Hematologic/Lymphati c Hematologic/Lymphati c: Reports none Allergic/Immunologic Allergic/Immunologic ED: Denies mouth swelling or tongue swelling EXAM Physical Exam Narrative Exam Narrative: 56-year-old female vital signs are stable afebrile. H EENT exam unremarkable atraumatic. Pupils round reactive light. No facial droop. Normal speech. Neck nontender no lymphadenopathy. Lungs clear to auscultation. Heart regular rhythm rate about 95 no murmur. Chest were nontender. Abdomen soft nontender. Moving all 4 extremities. 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 Dorsi plantarflexion intact. No drift. Fingertip to nose within normal limits. Neurologically she is awake alert with no focal motor deficits. Positive Hallpike. NIH score is 0. Const Vital Signs: 03/14/22 11:47 03/14/22 11:58 03/14/22 12:00 Temperature 97.4 F L Temperature Source Temporal Pulse Rate 96 100 Respiratory Rate 16 16 Respiratory Effort Normal Non-Labored Respiratory Pattern Normal Blood Pressure 147/88 H 137/89 H Blood Pressure Mean 107 105 Pulse Ox 98 99 Oxygen Delivery Method Room Air Room Air 03/14/22 13:00 03/14/22 15:00 Temperature Temperature Source Pulse Rate 77 74 Respiratory Rate 11 L 14 Respiratory Effort Respiratory Pattern Blood Pressure 108/75 120/74 Blood Pressure Mean 86 89 Pulse Ox 98 98 Oxygen Delivery Method Room Air Room Air Positive well nourished and well developed; Negative for cachectic, contractures or unkempt General Appearance ED: well developed and NAD; Negative for unkempt, cachectic, contractures, cyanotic or diaphoretic Nutritional Appearance: Negative for cachectic HEENT Reports moist mucous membranes Negative for trauma or tenderness (more content not included)... Normal [facility] Hematocrit Auto (Bld) [Volum e fraction]on 03-14-2022 Hematocrit (Bld) [Volume fraction] 40.5 % 37-47 [facility] Work Phone: Laboratory - Chemistry and C hemistry - challengeon 03-14-2022 CO2 [Moles/Vol] 28.0 mmol/L 21.0-32.0 [facility] Work Phone: Urea nitrogen/Creatinine [Mass ratio] 19.3 mg/mg 10-20 [facility] Work Phone: Laboratory - Hematology and Cell countson 03-14-2022 Erythrocyte distribution width (RBC) [Entitic vol] 42.4 fL 35.1-43.9 [facility] Work Phone: Erythrocyte distribution width (RBC) [Ratio] 12.6 % 11.6-14.6 [facility] Work Phone: Immature granulocytes/100 WBC (Bld) 0.800 % 0.0-0.9 [facility] Work Phone: Comment on above: IG% - Immature Granu locytes (promyelocytes, myelocytes and metamyelocytes) > 1% indicates that a LEFT SHIFT is Present. MCH (RBC) [Entitic mass] 31.6 pg 27.0-32.0 [facility] Work Phone: Nucleated RBC/100 WBC (Bld) [Ratio] 0 % 0-5 [facility] Work Phone: MCHC Auto (RBC) [Mass/Vol]on 03-14-2022 MCHC (RBC) [Mass/Vol] 34.3 g/dL 32-36 [facility] Work Phone: No Panel Informationon 03-14 Estimated Creatinine Clearance Calc 72.54 ml/min [facility] Work Phone: Estimated GFR (MDRD) Amer 92 mL/min >60 [facility] Work Phone: Comment on above: GFR Calc Estimated GFR (MDRD) Non-Af Amer 76 mL/min >[address] [facility] Work Phone: Comment on above: Non- GFR Calc Platelets bldon 03-14-2022 Platelets (Bld) [#/Vol] 260 10*3/uL 150-450 [facility] Work Phone: Serum or plasma calcium colton urement (mass/volume)on 03-14-2022 Calcium [Mass/Vol] 9.6 mg/dL 8.5-10.1 [facility] Work Phone: Serum or plasma creatinine m easurement (mass/volume)on 03-14-2022 Creatinine [Mass/Vol] 0.83 mg/dL 0.55-1.02 [facility] Work Phone: Comment on above: The validity of the calculated GFR & GFRAA in patients over 70 years has not been determined. Clinical correlation is essential. Serum or plasma urea nitroge n measurement (mass/volume)on 03-14-2022 Urea nitrogen [Mass/Vol] 16 mg/dL 7-18 [facility] Work Phone: Thin prep Papanicolaou smear with manual screeningon 03-14-2022 Thin prep Papanicolaou smear with manual screening 5 5-15 [facility] Work Phone: XR WRIST LEFT 3+ VIEWS (VANNESA RAE)on 09-01-2021 XR WRIST LEFT 3+ VIEWS (STANDARD) EXAMINATION: XR WRIST LEFT 3+ VIEWS (STANDARD) 09/01/2021 12:12 pm HISTORY: ORDERING SYSTEM PROVIDED HISTORY: pain, TECHNOLOGIST PROVIDED HISTORY: Illness/Other Reason for exam: pain Cancer History: . Surgery, RadiationHistory: . Encounter Type: Initial Additional signs and symptoms: pain while lifting or turning ORDERING SYSTEM PROVIDED DIAGNOSIS CODES: COMPARISON: None. FINDINGS: Three views left wrist. No acute fracture. Normal osseous alignment. Tiny marginal osteophytes at the thumb CMC joint. No advanced degenerative changes. Small nonspecific intraosseous cyst in the triquetrum. Soft tissues are unremarkable. IMPRESSION: No acute osseous abnormality or advanced degenerative changes of the left wrist. Workstation ID: [id number] Dictated by: MARY GREER on ThuSep 01, 2021 12:33:03 PM EST Transcribed by: MARY GREER on ThuSep 01, 2021 12:33:03 PM EST Finalized by: MARY GREER on [place] Sep 01, 2021 12:33:03 PM EST Normal [facility] Comment on above: Order Comment: Injur y/Trauma or Illness?:Illness/Other How long have you had these symptoms (acute/chronic)?:Acute Reason for exam?:pain History of cancer?:. Surgeries, chemotherapy, or radiation?:. Type of Exam?:Initial Additional signs and symptoms?:pain while lifting or turning CBCon 09-20-2020 Erythrocyte distribution width (RBC) [Entitic vol] 14.6 % 11.6 - 14.8 % [facility] Hematocrit (Bld) [Volume fraction] 37.3 % 36.0 - 46.0 % [facility] Hemoglobin (Bld) [Mass/Vol] 12.4 g/dL 12.0 - 16.0 g/dL [facility] Interpretation and review of laboratory results Abnormal [facility] MCH (RBC) [Entitic mass] 30.4 pg 26.0 - 34.0 pg [facility] MCHC (RBC) [Mass/Vol] 33.2 g/dL 31.0 - 37.0 g/dL [facility] MCV (RBC) [Entitic vol] 91.4 fL 80.0 - 100.0 fL [facility] Nucleated RBC (Bld) [#/Vol] 0.00 10*3/uL [facility] Nucleated RBC/100 WBC (Bld) [Ratio] 0.0 % [facility] Platelet mean volume (Bld) [Entitic vol] 10.8 fL 9.4 - 12.4 fL [facility] Platelets (Bld) [#/Vol] 266 10*3/uL [facility] RBC (Bld) [#/Vol] 4.08 10*6/uL [facility] WBC (Bld) [#/Vol] 13.44 10*3/uL [facility] TISSUE EXAMon 09-20-2020 Annotation comment [Interpretation] Narrative c4dusXLiLSRruAI2JpDp SSXfb6fbg2TtmYGjkNPa SNqxkYTvxwBcux39mKD4 rY83WK0qJCSwUdU1EANn pkU9Idr2GJVvKJWatSIr M131o7hnc8jbspAivJB4 fVxwYXJkXHBsYWluXGZz MjAgVGhlIHBhdGllbnQn cyByZXBvcnRlZCBoaXN0 w1T5HJ5wEEMtbEAwUDWz eXBlcnBsYXNpYSBvZiB0 wDSpSO5sk83bvCCdzA3z tJHgbl52AMDjSHMLInQl RPUaWfz6IU8tYCJwl41b wDkaSEO1fkDmgjQcjDaq hWIuEFC5n486JDKpGNCd wHMsKFN7nBIdQM88hDZt DSWijTKggZ3xVBNhHKHi v8I5FCHux4MmVJ9sb413 k66ehDQctO6yj2WqDVI4 Vx1kvWEgXSRpq7DtqAwi fc6jV52ohWYhEOvnjNhz XSHya57vXDQGXGL8mD1s loVsqE60AXSkCTNzUv55 WSGqaJ6dzI7edq4kLEVm OOScEOqjCL6xWOS4nJNz rqOhDK1tIJ0kmFqemnPr N1filIEshsJfEytgPEZj stU2qPNuIRideUomROTq yEA3QFHvTJiaPZZToKbx yRDzcOAjz4TaGGxzrFaq ehO1mJTkANZikPhtxc99 zHSrqrShQTNmpM8zohXa AY0fFQtaWAS3 [facility] Case Report Surgical Pathology Report Case: [id number] Authorizing Provider: Garrett Casas DO Collected: 09/19/2020 11:57 AM Ordering Location: [facility] Received: 09/19/2020 01:11 PM Periop Pathologist: Cristobal Dominguez MD Specimen: Uterus, Cervix, Bilateral Ovaries & Fallopian Tubes, UTERUS,CERVIX,BILATE RAL FALLOPIAN TUBES AND BILATERAL OVARIES [facility] Clinical information z5kywPDeSQOuvFX6EwXg SSZln1nrq4XiaQCpvRFj ODpezGRqeoEoks99qLB0 eA90RR8gXGEuRoR5YMPy bfY3Mdd1SQMeAMYelLNz X204j0zum1tdvsLdyIE1 fVxwYXJkXHBsYWluXGZz MjAgSHlwZXJwbGFzaWEu IFxwYXJ9 [facility] Pathology report final diagnosis Narrative a4ctvBZiFZKliWQ5YsBx PKYxx9fhk2LsgMQjqCUu RYzawRUuomIpox14lRG6 oG16UJ7gZGPeIuW7OWLa keD7Voq8KLIzSMAfrCOe W211z3jzo2vcswObqLX5 fVxwYXJkXHBsYWluXGZz MjBccGFyXHBhcmRcdHgz UqVuCgkwqpRlIFN2HTD7 kqbuM4Wipgq8LJUtfIlm zQIwKQpnGfAmzP4bkBGk HFC9JeWlMFPnrjBxf5Bn poponllkxA62AJwkjVtq uLSbFMM1d867IUYlFHSz uYcrlWUmMVkjv0OxgDyh I88xu59izJ9aCJG7l330 OiBccGFyXHBhclxsaTcy VGnviB50DkIsWdScpCto QCFduuDtcUH9zLVjUEFl bYLfd1NqEF7msRYzbSBj rHLfLQwiQujnuA3olOcl sgzrexNgc9DsiJGrYRL4 a8EkXLGnkyFqgQmnwz1o bGFuZHVsYXIgaHlwZXJw bGFzaWEuIFxwYXJccGFy LYO2PPU6vmH5kQFvDWQr wnvytqCaucQnjFB8siq9 bSwgZGlmZnVzZSBhZGVu k757l5UjslpoZX4gTLpg wY3tnY0nJEJci3KzFNEv qL0tsiAbNaQaaDMcZRJb kmBKFUjvzPa6LJBpx3Oz gAvsEEPetZTklUYjEA6o JW0txNhaamPwI1ecIHal YXJccGFyIEJlbmlnbiBi zVrhbETyDGwlm7Boghso ekW5xNYeCBRwOT3lXTgj hK4vmA6mnWCyBOHzsCNg GHJlvXV6eeeeYJ4xSCXm mBJnb2ejP6wcQFHcNS1o ZXMuICBccGFyXHBhciBC JU2yT48yVfjnMWXyioIb FVDymLnulXynigY2hSXt tuG5wDItAGKwpxK0uGZj gPAvhNJ2ve0eKSGhnkvw YXJcbGkwXGxpbjBcYjBc BeXeNLRWFC3vP2fiBAyd YXJ9 [facility] Pathology report gross observation Narrative k1cxuLIjLADfpWK2WsTo LFHvx2jhi3KgmGOvbWBz TQjmoIMpbvJvwe94oBV0 nI32NR2wBDMvXtC9VSQh upV7Gjp4THRoIKWiyVBo K953c8ilu6iliuMzrCC8 fVxwYXJkXHFqXHBsYWlu BNGeIlJzEbLbRCz1YRRi uE8vIx0yiPHxuD2zlMDo RWquQRYlCEAek9KrP4X4 QSQiELvgm2jlPPSpRNgz v3XpZLhHXTWSXW2LZB6e vYU2LXqNI2OKZ6bKlNU3 JQZgqIZ6NZJJSZ6BjJF9 ODKBRN2xSMxbJkl9IHe4 fXtcZmxkcnNsdCBcJzFj aP1XvlRlUsfnMA5jIAih CXD7CYEiCSaul3knVGSz GDjth9DbHZiAWPWWIF9A XA6cnWV4LUtWG6YVZJbf MQAxMIkecHUPFZcVS3ai wETGRMzmNqlkMTP9kKD0 qT41UGWhSLKuiYZuOAnk U568SSCgZUkrPSLzBoEx IiBhbmQgZGVzaWduYXRl ZCAidXRlcnVzLCBjZXJ2 hFzoQMTmnHT9WEZaiDFx bISaDPG6lNOboSSoFG7s IGNlcnZpeCwgMTMxIGdy ZN5qZNFcDNE6YZksLE12 ABwcLO7xLKTwPdKkVUlk CKCnpb9dAMHqqcEhqNtq aHRseSByYWdnZWQuIFRo RZPoE7EyF8Lpuod0HAxx USDtoMZkSO9mlT55owGr xkDhrWqzZB2pSKuySXVy aSGpfL9hPOakSBNiJH9z NDL1dQNhxLDpIL1fuOHu bkAmYihguAHzBjVnA57p OT9mZUfmvgGqGCW3LEPc FYUtpPXwXL6atG58rdBu oeCbU6NebjqjNQwprORa b5GsBpRvCPpjQIZsEE3e VDHfrVCiKBVptsr1kKPo dgP0SpWnuBZhFvFrE85v LF9oQXsayiEqAQO3YHBw uLXrCTVyxqqwUTXeoR65 bHkgdHJhYmVjdWxhdGVk IIHbCT9sQLJcxGHdSgSt TKqjVR38w15cyTScnR2z aXMgZmFpbnRseSBwYWxl PEIwNDGfkT7pyGyqBQTr YM1vYIKcoWIhUIjikGdj Z7cjrXpbTELbNIYyEGAf NHZvR91oaODwbaJbe6Zl nSViPKPltlKsbSA4xhp3 rB3fZX1oEULoa9GiKKOj VDwlmhFxeDUwNZ4oe1Ku cyBhcmUgaWRlbnRpZmll QP8dOAZbUXN4GMmuNLMz aWNrbmVzcyBpcyAyLjcg Q36qj5h7cAV0lHRlHOBr b4MltCTfBEPbrJlvPZSn zE0xGXJ0eXp8LCCtn4J4 yMBeLFJsmtXoCZ27ZCTp WFVgTXYeOSVac5UmflMh J7mrIkPajl8jTCOgMJQs nML1dpYuLgAaU04jEWAR ZWNlaXZlZCBzZXBhcmF0 VAx5VBvidDelaqI9sGJy X20ieEBzbbUoAMMcQZV9 r73vbD1paywcnpKlNEN9 vPPtUL32FACjMN8dW11y cGxleGVzLiAgVGhlIGZp afV4YTdzyJGtgTY8ZK2h MJLxvdKmotutx2OxHP31 CED4CHsqSJTgVkV7OPXd BUT2WUZzEcWpiV8aBP5m LWUhoLB4aMNvSK3zRVPt NIFwOYIuFSgaDU23uFPi LCHeFXXIxLEvZ9L5LZM8 ynKcM2TqyOUbsYKhLTru jYLvLMOeGIBey3K3hQRn AJljjZtbIDF8cMssDBmp oIyzEBGkwGL8CGVbSdBm hVPvCbTcaSSbOpeeG11y uWubgDFqk704UCgkskPr AOXpPDLfWIP1kZhbYGZq dWlkLiAgVGhlIGlubmVy VIvweekqWdNfkxXdjZ5i lZnnCOORcZCyTCL5ZTKl QYMzp7IkdBVkbOQdQpVu eD7obyhguHZtCNUpsEwt nPcohmH4pAMjIQkgETPo DVZ2YEIeOKZmlU1jLJDp KRRpCRIek2VzcQGxa4V0 CGKvFTQ5dSVpGK73gTWm eMlxYRZfznJ2nMHztOTh kFL1ksGuAP2iuK1tBAFz c03sDV4jDUKjADUfWQRy MeVtsO9wJDBhUBLyhl76 oN1qfZWyhbNoI53uaSEz zwHtsHyxPV0paKBwrWiz IGNsaXBzLiAgVGhlIHNl Q24oODWyhkXnM4TceTMf JXXrGWYaJiYgLq0yfNYw dmFyeSBpcyAzLjAgeCAy UqLrrGWqEpMeV03kYTZR cWZhP4Vgc8KdTOCflzYm ckSfE6Wwj7e6sZXfjvFx p2B1wYOnXdHKxLWzxFTc YZ0ppFfkFHIdrqT0PZ6n iXSbqS79WEMwSFUki2N6 qXNzBYgibMxjRJS1rNfg AAojbWdfFQCleQU6QRSc LjkgeCAwLjcgeCAwLjUg Y12fiGcykZPgj521BNze yeKiKJYpZINgWBW9iQci SFQecMejXqWRkDHquA5o HONswOclaE5cGCijDNCq zoujFL4fTRPzg985tJ5f MJVal5Vtf60bYJS8o3Vb aXMgaWRlbnRpZmllZCwg NH52DEEqSIXlSFVjABpr yfWum789UUoedzO0qVah IGZsdWlkIHdpdGggYSBz aL9vsMgbgQ0mWFUzmEnd jX3iTbFqMTzcXZG5iBNl vMEbVQJnQ76pxkLjy2Vf ZmltYnJpYXRlZCBmYWxs q7ZcPL4kdHFaHGLbkdM2 SsGlkTLaMjsjS42lQXYV pCRmq9Xrv7NpENynYJYi fYixyZp7IIiuzG1uhijq I4oeUICxw5VzAHMqkKjy IGZpbWJyaWEuIFNldmVy GVbeqLCrUDG8UiCmTED6 c6KtVGXkKCIwRSZvjAsj aWVkIHJhbmdpbmcgZnJv gPFsDzFmX99dcK8zTU5v UEHoFvJzIZjhFNF9b6Up IIVzuiAxkZ2fA1wxKRMk JGAwhS2gIol5oHDgFFKc VGSvea44qB0bmTUstwZy Q01yxEGfmrTcgZtqAX3r dGFsbGljIGNsaXBzLiAg HPirZWl0gNIrKVprPRye BU82aXVsKKOqNUKnsWUy XHFsXHBhclxmMCBDYXNz HBH1KJDYoS8eHUI5Urcd FCAcCRSbOH14MZMzc2Xc K3Zlanh1CJCcrgUNSg5g moVjlphmunAye1amkzC1 bLLceW2iQOBxK40fahWl LFdxCkIjdJReMERuBX0g e0NwuvOdgCR1wkUdmQnd uCJzNVEhyKS8bfqyoXGo f3U5FPSeb2Q7ATxfAJMv WUIlnK8gjOSbzP7lVJKg vkQweNsyBOMaJTUtaM2h mILxyE3dCCndk4RdKBD3 MBOztqHxl5GwzYOcnG99 pTZydpOsqkOgU5Nmyfu9 IHdpdGggbGVmdCBwYXJh qKT6svmooQYqs2E0PBPz o7V0VTttOQMrHYEfJBTq LWVudGlyZSBhbnRlcmlv kxFbgbYffYeirBZ4cslx yLQugV4foSzfbaWgdOVy rRG2CSMrVkRitVCwnG8u cVFdnE8ogG64DBOkhBTc ulebLJVuSDieVD45DAlv wXskYWKhA73ddQKohlbz JaWvt4YmfSPtEUMegNCb AEEre7RvMA8dCOPpQUje MDZnLEBxLYCmSA7tlyKm hzYgzG3udFMlsX5cVOLl AY0fyX1pUMDraMDtHPu0 zuH0yG4oEJP4Xp1mvCPn JDGwwa3hZHX4xtS2ypD7 tlCdr3ibbvT4jUPeqP8b NQLkI42pbzQdtURjYARo DF2nnLDlfPKpazZkdHxs PBUrUFZqOUCyuwP7FIHm dTmwpStgwxK1jHNyJTJb heAZGcJka6Kgu58sHC38 PXC2CFVcxrJRRwAin7Ir w54oFMAwsLitqEcacaD3 xTNjUDzrDTXgRW9aE5gj IWXnsSBcYJKLVs9XBU4o dzyyITDotrniUBZlP0Rs r4LgEHjfoTfwMCOho11n cLDnVu1faFBsJNL3ErZZ dZNldsZfVFCkEXU8qM4u fFU1XEwaw4ZuoRJfBX4f BjBkZTKFsTGfdEPuA1mh Ukv7WOSiXu0uIHFAa2d2 bLR1rgajY9bpNRXuFPXs cGFyfQ== [facility] Pathology report microscopic observation Narrative Other stain c8eogFGmDQUgyUVgEaQi LCHfVFSwx0haNZYfcTZa ZzEwMzNcZnRuYmpcdWMx KCVpDzRky2sju812iLOx a2clKIQiTqM5iODfYUDi sVNlJ570NPQsPNnpl9hr j8QbFAHkbHBar6I5VYGJ gzsbtVv9lOhsJ18ks2Q7 BafoY3wrTCElXSQwH8Fo WH0eSFQzAqb9TPK2TJC4 MPFrYNLzZ5XuTM2aLJLl vLMiFWr9k4dipYxrQUXm ZPD4a7cnHNgogjIyGQ5x hk4ucUx7o1qvnkYvFRHu KAIevEZJQSCqK2JcyEtn Om9elDf5rFbeXkmoXUA1 Mso0YS2pku03nex4dZla AFWnpnsuHuM6DTovKGNa ydwbTZv7MJllUEDgaDD7 UUDwjVAtL0YvIKDeAX5j vxr6VFE3ELthRFRxEbT2 NDBcaGVhZGVyeTcyMFxm e105CDJ9FwPeNW3vN9Bg h0O8cF7gmNXxBBXzgNNt AlXmZFRxeq0svIXfXNyi k0PdGCC0bcE7zBDvbUWr RSJkMR48Gmigl3JmEiec GPA4GLSezoShs5Wfi6vf TaEshvMnF6fuC4VnNBDx UKTvYBRpJaGmftYuc3Jl w6PbqKCfxHi6s4vuNBCv EJXzhSail4ztJKB1AWHi E4G7cIGwq3qjYJydISMc yWQ1lkS7ANClqAOyE9Hp yH1lLWAuFM6jdeb4o2os CFY0TBpsYSWuVlM4ygW1 NDBcaGVhZGVyeTcyMFxm l151XTO9IyUyBLIvh7No A9WhpUqmM60izLvqW85e TVUhoAvglW5gtKpcqN2l ZjBcZnMyNFxxbFxwbGFp blxmMVxmczIwXGxhbmcx UWRpMJopR4yrJcAbYKFs mLcyEYukt2OdSRKpDAIs XrVjQMwqtc3kJ54nbHAf MPwnyArkJIDfy67bgHBp zXYsMs0soOKvGxdlGHK9 [facility] AIRWAY ETTon 09-19-2020 Ne Still [employer] 09/20/2020 9:24 AM ETT Airway Mask ventilation: mask ventilation not attempted Technique: video laryngoscopy and intubating stylet Type: cuffed oral Tube size: 7 mm Final laryngoscope: video laryngoscope 3 Location: oral Final grade: 1 Insertion attempts: 1 Placement verification: auscultation, end tidal CO2, symmetrical chest wall movement and cuff palpation Secured at: 22 cm (measured from the lips) Secured by: tape Bite block: none Lip/tooth/tongue trauma: no Comments: Pillow placed as per pt's comfort, head in neutral position, Intubated with head in neutral position and cervical immobilization maintained, and head left as it is prior to induction for rest of the procedure. [facility] NG/OG TUBEon 09-19-2020 Vicenta Bradshaw 09/19/2020 12:16 PM NG/OG Tube Start time: 09/19/2020 10:30 PM Tube type: orogastric Tube size: 18 Fr Tube location: mouth Placement verification: suction return Comments: Dc upon Emergence [facility] POC , Urineon 09-19 Beta HCG ( test) Ql (U) Dilute urine specimens, as indicated by a low specific gravity (<1.010) may not contain circulation representative levels of hCG. If is still suspected, a serum test or repeat urine test using a first morning urine specimen should be considered. [facility] HCG ( test) Ql (U) Negative Negative [facility] Interpretation and review of laboratory results Normal [facility] Type and Screenon 09-19-2020 ABO and Rh group Nom (Bld) B Negative [facility] Blood group antibody screen Ql Negative [facility] Specimen Expires 09/22/2020 23:59 EST [facility] COVID-19, MOLECULARon 2020 SARS-COV-2 RNA ([place]OROTA) Not Detected Normal Not Detected [facility] Comment on above: Order Comment: : COV ID-19 Lab Test Only (OP in UTM) Dr Garrett Casas/Roxy [phone] Result Comment: This test was performed under the FDA's Emergency Use Authorization (EUA). Testing was performed using the Rowan SARS-CoV-2 RT-PCR assay on the Dorota Rowan 6800 System. This test has not been approved for use in asymptomatic patients and its performance in this patient population has not been evaluated. Negative results do not rule out the presence of SARS-CoV-2/COVID-19. Fact sheets for this EUA can be found at the following links: For Healthcare Providers: https://www.fda.gov/media/382643/download For Patients: https://www.fda.gov/media/153540/download Performed By: #### L [id number] #### [facility] [address] [place] [address] Andrea Avalos M.D. [id number] POC , Urineon 01-17 Beta HCG ( test) Ql (U) Dilute urine specimens, as indicated by a low specific gravity (<1.010) may not contain circulation representative levels of hCG. If is still suspected, a serum test or repeat urine test using a first morning urine specimen should be considered. [facility] HCG ( test) Ql (U) Negative Negative [facility] Interpretation and review of laboratory results Normal [facility] CBC with differentialon 05-29 Basophils (Bld) [#/Vol] 0.0 K CUMM Normal 0.0-0.2 [facility] Comment on above: Order Comment: Items in this order include: Comprehensive Metabolic Panel, Lipid Panel, TSH w/ reflex to FT4, CBC with differential, HgbA1C, , , , Testing Performed By: [facility] [address] [place] [address] Dr. Nichelle Morales, Plastics Worker Performed By: #### C 215, C47, C8, C4124, C406 #### [facility] [address] [place] [address] [address] [place] [address] Basophils/100 WBC (Bld) 0.7 % Normal 0.0-3.0 [facility] Comment on above: Order Comment: Items in this order include: Comprehensive Metabolic Panel, Lipid Panel, TSH w/ reflex to FT4, CBC with differential, HgbA1C, , , , Testing Performed By: [facility] [address] [place] [address] Dr. Nichelle Morales, Plastics Worker Performed By: #### C 215, C47, C8, C4124, C406 #### [facility] [address] [place] [address] [address] [place] [address] Eosinophils (Bld) [#/Vol] 0.1 K CUMM Normal 0.0-0.4 [facility] Comment on above: Order Comment: Items in this order include: Comprehensive Metabolic Panel, Lipid Panel, TSH w/ reflex to FT4, CBC with differential, HgbA1C, , , , Testing Performed By: [facility] [address] [place] [address]. [place] [address] Dr. Nichelle Morales, Plastics Worker Performed By: #### C 215, C47, C8, C4124, C406 #### [facility] [address] [place] [address] [address] [place] [address] Eosinophils/100 WBC (Bld) 2.6 % Normal 0.0-7.0 [facility] Comment on above: Order Comment: Items in this order include: Comprehensive Metabolic Panel, Lipid Panel, TSH w/ reflex to FT4, CBC with differential, HgbA1C, , , , Testing Performed By: [facility] [address] [place] [address] Dr. Nichelle Morales, Plastics Worker Performed By: #### C 215, C47, C8, C4124, C406 #### [facility] [address] [place] [address] [place] [address] Erythrocyte distribution width (RBC) [Ratio] 12.4 % Normal 11.5-15.5 [facility] Comment on above: Order Comment: Items in this order include: Comprehensive Metabolic Panel, Lipid Panel, TSH w/ reflex to FT4, CBC with differential, HgbA1C, , , , Testing Performed By: [facility] [address] [place] [address] Dr. Nichelle Morales, Plastics Worker Performed By: #### C 215, C47, C8, C4124, C406 #### [facility] [address] [place] [address] [address] [place] [address] Hematocrit (Bld) [Volume fraction] 40.1 % Normal 37.0-47.0 [facility] Comment on above: Order Comment: Items in this order include: Comprehensive Metabolic Panel, Lipid Panel, TSH w/ reflex to FT4, CBC with differential, HgbA1C, , , , Testing Performed By: [facility] [address] [place] [address] Dr. Nichelle Morales, Plastics Worker Performed By: #### C 215, C47, C8, C4124, C406 #### [facility] [address] [place] [address] [address] [place] [address] Hemoglobin (Bld) [Mass/Vol] 13.0 g/dL Normal 11.5-15.5 [facility] Comment on above: Order Comment: Items in this order include: Comprehensive Metabolic Panel, Lipid Panel, TSH w/ reflex to FT4, CBC with differential, HgbA1C, , , , Testing Performed By: [facility] [address] [place] [address] [address] [address] Nichelle Morales, Plastics Worker Performed By: #### C 215, C47, C8, C4124, C406 #### [facility]. [address] [place] [address] [address] [place] [address] ImmGrn # 0.0 K CUMM Normal 0.0-0.3 [facility] Comment on above: Order Comment: Items in this order include: Comprehensive Metabolic Panel, Lipid Panel, TSH w/ reflex to FT4, CBC with differential, HgbA1C, , , , Testing Performed By: [facility] [address] [place] [address] Dr. Nichelle Morales, Plastics Worker Performed By: #### C 215, C47, C8, C4124, C406 #### [facility] [address] [place] [address] [address] [place] [address] ImmGrn % 0.2 % Normal 0.0-3.0 [facility] Comment on above: Order Comment: Items in this order include: Comprehensive Metabolic Panel, Lipid Panel, TSH w/ reflex to FT4, CBC with differential, HgbA1C, , , , Testing Performed By: [facility] [address] [place] [address] Dr. Nichelle Morales, Plastics Worker Performed By: #### C 215, C47, C8, C4124, C406 #### [facility]. [address] [place] [address] [place] [address] Lymphocytes (Bld) [#/Vol] 1.4 K CUMM Normal 0.7-4.5 [facility] Comment on above: Order Comment: Items in this order include: Comprehensive Metabolic Panel, Lipid Panel, TSH w/ reflex to FT4, CBC with differential, HgbA1C, , , , Testing Performed By: [facility] [address] [place] [address] [address] [address] Nichelle Morales, Plastics Worker Performed By: #### C 215, C47, C8, C4124, C406 #### [facility]. [address] [place] [address] [address] [place] [address] Lymphocytes/100 WBC (Bld) 30.1 % Normal 14.0-46.0 [facility] Comment on above: Order Comment: Items in this order include: Comprehensive Metabolic Panel, Lipid Panel, TSH w/ reflex to FT4, CBC with differential, HgbA1C, , , , Testing Performed By: [facility] [address] [place] [address] Dr. Nichelle Morales, Plastics Worker Performed By: #### C 215, C47, C8, C4124, C406 #### [facility] [address] [place] [address] [address] [place] [address] MCH (RBC) [Entitic mass] 31.0 pg Normal 27.0-31.0 [facility] Comment on above: Order Comment: Items in this order include: Comprehensive Metabolic Panel, Lipid Panel, TSH w/ reflex to FT4, CBC with differential, HgbA1C, , , , Testing Performed By: [facility] [address] [place] [address] Dr. Nichelle Morales, Plastics Worker Performed By: #### C 215, C47, C8, C4124, C406 #### [facility]. [address] [place] [address] [address] [place] [address] MCHC (RBC) [Mass/Vol] 32.4 g/dL Normal 32.0-36.0 [facility] Comment on above: Order Comment: Items in this order include: Comprehensive Metabolic Panel, Lipid Panel, TSH w/ reflex to FT4, CBC with differential, HgbA1C, , , , Testing Performed By: [facility] [address] [place] [address] Dr. Nichelle Morales, Plastics Worker Performed By: #### C 215, C47, C8, C4124, C406 #### [facility] [address] [place] [address] [address] [place] [address] MCV (RBC) [Entitic vol] 95.5 fL Normal 78.0-100.0 [facility] Comment on above: Order Comment: Items in this order include: Comprehensive Metabolic Panel, Lipid Panel, TSH w/ reflex to FT4, CBC with differential, HgbA1C, , , , Testing Performed By: [facility] [address] [place] [address] Dr. Nichelle Morales, Plastics Worker Performed By: #### C 215, C47, C8, C4124, C406 #### [facility]. [address] [place] [address] [address] [place] [address] Monocytes (Bld) [#/Vol] 0.4 K CUMM Normal 0.1-1.0 [facility] Comment on above: Order Comment: Items in this order include: Comprehensive Metabolic Panel, Lipid Panel, TSH w/ reflex to FT4, CBC with differential, HgbA1C, , , , Testing Performed By: [facility] [address] [place] [address] Dr. Nichelle Morales, Plastics Worker Performed By: #### C 215, C47, C8, C4124, C406 #### [facility] [address] [place] [address] [address] [place] [address] Monocytes/100 WBC (Bld) 8.7 % Normal 4.0-13.0 [facility] Comment on above: Order Comment: Items in this order include: Comprehensive Metabolic Panel, Lipid Panel, TSH w/ reflex to FT4, CBC with differential, HgbA1C, , , , Testing Performed By: [facility] [address] [place] [address] Dr. Nichelle Morales, Plastics Worker Performed By: #### C 215, C47, C8, C4124, C406 #### [facility]. [address] [place] [address] [address] [place] [address] Neutrophils (Bld) [#/Vol] 2.7 K CUMM Normal 1.8-7.8 [facility] Comment on above: Order Comment: Items in this order include: Comprehensive Metabolic Panel, Lipid Panel, TSH w/ reflex to FT4, CBC with differential, HgbA1C, , , , Testing Performed By: [facility] [address] [place] [address] [address] [address] Nichelle Morales, Plastics Worker Performed By: #### C 215, C47, C8, C4124, C406 #### [facility]. [address] [place] [address] [address] [place] [address] Neutrophils/100 WBC (Bld) 57.7 % Normal 40.0-74.0 [facility] Comment on above: Order Comment: Items in this order include: Comprehensive Metabolic Panel, Lipid Panel, TSH w/ reflex to FT4, CBC with differential, HgbA1C, , , , Testing Performed By: [facility] [address] [place] [address]. [place] [address] Dr. Nichelle Morales, Plastics Worker Performed By: #### C 215, C47, C8, C4124, C406 #### [facility] [address] [place] [address] [address] [place] [address] Platelet mean volume (Bld) [Entitic vol] 11.1 fL Normal 8.9-12.6 [facility] Comment on above: Order Comment: Items in this order include: Comprehensive Metabolic Panel, Lipid Panel, TSH w/ reflex to FT4, CBC with differential, HgbA1C, , , , Testing Performed By: [facility] [address] [place] [address]. [place] [address] Dr. Nichelle Morales, Plastics Worker Performed By: #### C 215, C47, C8, C4124, C406 #### [facility] [address] [place] [address] [place] [address] Platelets (Bld) [#/Vol] 266 K CUMM Normal 130-400 [facility] Comment on above: Order Comment: Items in this order include: Comprehensive Metabolic Panel, Lipid Panel, TSH w/ reflex to FT4, CBC with differential, HgbA1C, , , , Testing Performed By: [facility] [address] [place] [address]. [place] [address] Dr. Nichelle Morales, Plastics Worker Performed By: #### C 215, C47, C8, C4124, C406 #### [facility] [address] [place] [address] [address] [place] [address] RBC (Bld) [#/Vol] 4.20 M CUMM Normal 3.80-5.10 [facility] Comment on above: Order Comment: Items in this order include: Comprehensive Metabolic Panel, Lipid Panel, TSH w/ reflex to FT4, CBC with differential, HgbA1C, , , , Testing Performed By: [facility] [address] [place] [address] Dr. Nichelle Morales, Plastics Worker Performed By: #### C 215, C47, C8, C4124, C406 #### [facility] [address] [place] [address] [address] [place] [id number] WBC (Bld) [#/Vol] 4.6 K CUMM Normal 3.8-10.6 [facility] Comment on above: Order Comment: Items in this order include: Comprehensive Metabolic Panel, Lipid Panel, TSH w/ reflex to FT4, CBC with differential, HgbA1C, , , , Testing Performed By: [facility] [address] [place] [address] Dr. Nichelle Morales, Plastics Worker Performed By: #### C 215, C47, C8, C4124, C406 #### [facility] [address] [place] [address] [address] [place] [address] Comprehensive Metabolic Pane madi 06-10-2019 Albumin [Mass/Vol] 4.3 g/dL Normal 3.5-5.0 [facility] Comment on above: Order Comment: Items in this order include: Comprehensive Metabolic Panel, Lipid Panel, TSH w/ reflex to FT4, CBC with differential, HgbA1C, , , , Testing Performed By: [facility] [address] [place] [address] Dr. Nichelle Morales, Plastics Worker Performed By: #### C 215, C47, C8, C4124, C406 #### [facility] [address] [place] [address] [address] [place] [id number] Alk Phos 52 U/L Normal 23-159 [facility] Comment on above: Order Comment: Items in this order include: Comprehensive Metabolic Panel, Lipid Panel, TSH w/ reflex to FT4, CBC with differential, HgbA1C, , , , Testing Performed By: [facility] [address] [place] [address] [address] [address] Nichelle Morales, Plastics Worker Performed By: #### C 215, C47, C8, C4124, C406 #### [facility]. [address] [place] [address] [place] [address] ALT [Catalytic activity/Vol] 20 U/L Normal 0-38 [facility] Comment on above: Order Comment: Items in this order include: Comprehensive Metabolic Panel, Lipid Panel, TSH w/ reflex to FT4, CBC with differential, HgbA1C, , , , Testing Performed By: [facility] [address] [place] [address] Dr. Nichelle Morales, Plastics Worker Performed By: #### C 215, C47, C8, C4124, C406 #### [facility] [address] [place] [address] [address] [place] [address] AST [Catalytic activity/Vol] 27 U/L Normal 11-43 [facility] Comment on above: Order Comment: Items in this order include: Comprehensive Metabolic Panel, Lipid Panel, TSH w/ reflex to FT4, CBC with differential, HgbA1C, , , , Testing Performed By: [facility] [address] [place] [address] Dr. Nichelle Morales, Plastics Worker Performed By: #### C 215, C47, C8, C4124, C406 #### [facility] [address] [place] [address] [place] [address] Bilirubin [Mass/Vol] 0.3 mg/dL Normal 0.2-1.3 [facility] Comment on above: Order Comment: Items in this order include: Comprehensive Metabolic Panel, Lipid Panel, TSH w/ reflex to FT4, CBC with differential, HgbA1C, , , , Testing Performed By: [facility] [address] [place] [address] Dr. Nichelle Morales, Plastics Worker Performed By: #### C 215, C47, C8, C4124, C406 #### [facility] [address] [place] [address] [address] [place] [address] Calcium [Mass/Vol] 9.9 mg/dL Normal 8.5-10.5 [facility] Comment on above: Order Comment: Items in this order include: Comprehensive Metabolic Panel, Lipid Panel, TSH w/ reflex to FT4, CBC with differential, HgbA1C, , , , Testing Performed By: [facility] [address] [place] [address] [address] [address] Nichelle Morales, Plastics Worker Performed By: #### C 215, C47, C8, C4124, C406 #### [facility] [address] [place] [address] [address] [place] [address] Chloride [Moles/Vol] 105 mmol/L Normal 98-107 [facility] Comment on above: Order Comment: Items in this order include: Comprehensive Metabolic Panel, Lipid Panel, TSH w/ reflex to FT4, CBC with differential, HgbA1C, , , , Testing Performed By: [facility] [address] [place] [address] Dr. Nichelle Morales, Plastics Worker Performed By: #### C 215, C47, C8, C4124, C406 #### [facility] [address] [place] [address] [address] [place] [address] CO2 [Moles/Vol] 24.0 mmol/L Normal 22.0-30.0 [facility] Comment on above: Order Comment: Items in this order include: Comprehensive Metabolic Panel, Lipid Panel, TSH w/ reflex to FT4, CBC with differential, HgbA1C, , , , Testing Performed By: [facility] [address] [place] [address] [address] [address] Nichelle Morales, Plastics Worker Performed By: #### C 215, C47, C8, C4124, C406 #### [facility] [address] [place] [address] [address] [place] [address] Creatinine [Mass/Vol] 0.8 mg/dL Normal 0.1-1.2 [facility] Comment on above: Order Comment: Items in this order include: Comprehensive Metabolic Panel, Lipid Panel, TSH w/ reflex to FT4, CBC with differential, HgbA1C, , , , Testing Performed By: [facility] [address] [place] [address]. [place] [address] Dr. Nichelle Morales, Plastics Worker Performed By: #### C 215, C47, C8, C4124, C406 #### [facility] [address] [place] [address] [address] [place] [address] GFR/1.73 sq M.predicted MDRD (S/P/Bld) [Vol rate/Area] 75 mL/min per 1.73 Normal >60 [facility] Comment on above: Order Comment: Items in this order include: Comprehensive Metabolic Panel, Lipid Panel, TSH w/ reflex to FT4, CBC with differential, HgbA1C, , , , Testing Performed By: [facility] [address] [place] [address] Dr. Nichelle Morales, Plastics Worker Result Comment: The GFR estimate is not adjusted for race. If the patient's race is -Japanese, the GFR estimate must be multiplied by a factor of 1.21. Performed By: #### C 215, C47, C8, C4124, C406 #### [facility] [address] [place] [address] [address] [place] [address] Glucose [Mass/Vol] 93 mg/dL Normal 74-100 [facility] Comment on above: Order Comment: Items in this order include: Comprehensive Metabolic Panel, Lipid Panel, TSH w/ reflex to FT4, CBC with differential, HgbA1C, , , , Testing Performed By: [facility] [address] [place] [address]. [place] [address] Dr. Nichelle Morales, Plastics Worker Performed By: #### C 215, C47, C8, C4124, C406 #### [facility] [address] [place] [address] [place] [address] Potassium [Moles/Vol] 4.8 mmol/L Normal 3.5-5.3 [facility] Comment on above: Order Comment: Items in this order include: Comprehensive Metabolic Panel, Lipid Panel, TSH w/ reflex to FT4, CBC with differential, HgbA1C, , , , Testing Performed By: [facility] [address] [place] [address] Dr. Nichelle Morales, Plastics Worker Performed By: #### C 215, C47, C8, C4124, C406 #### [facility] [address] [place] [address] [address] [place] [address] Protein [Mass/Vol] 7.3 g/dL Normal 6.3-8.4 [facility] Comment on above: Order Comment: Items in this order include: Comprehensive Metabolic Panel, Lipid Panel, TSH w/ reflex to FT4, CBC with differential, HgbA1C, , , , Testing Performed By: [facility] [address] [place] [address] Dr. Nichelle Morales, Plastics Worker Performed By: #### C 215, C47, C8, C4124, C406 #### [facility] [address] [place] [address] [address] [place] [address] Sodium [Moles/Vol] 140 mmol/L Normal 135-145 [facility] Comment on above: Order Comment: Items in this order include: Comprehensive Metabolic Panel, Lipid Panel, TSH w/ reflex to FT4, CBC with differential, HgbA1C, , , , Testing Performed By: [facility] [address] [place] [address] Dr. Nichelle Morales, Plastics Worker Performed By: #### C 215, C47, C8, C4124, C406 #### [facility] [address] [place] [address] [address] [place] [address] Urea nitrogen [Mass/Vol] 15 mg/dL Normal 6-22 [facility] Comment on above: Order Comment: Items in this order include: Comprehensive Metabolic Panel, Lipid Panel, TSH w/ reflex to FT4, CBC with differential, HgbA1C, , , , Testing Performed By: [facility] [address] [place] [address] [address] [address] Nichelle Morales, Plastics Worker Performed By: #### C 215, C47, C8, C4124, C406 #### [facility] [facility] [place] [address] [id number] 06-10-2019 HbA1c (Bld) [Mass fraction] 5.6 % Normal <5.7 [facility] Comment on above: Order Comment: Items in this order include: Comprehensive Metabolic Panel, Lipid Panel, TSH w/ reflex to FT4, CBC with differential, HgbA1C, , , , Testing Performed By: [facility] [address] [place] [address]. [place] [address] Dr. Nichelle Morales, Plastics Worker Result Comment: Refe rence Interval: Normal: below 5.7%. Prediabetes: 5.7% to 6.4%. Diabetes: 6.5% or above. Performed By: #### C 215, C47, C8, C4124, C406 #### [facility] [address] [place] [address] [address] [place] [address] Lipid Panelon 06-10-2019 Cholesterol [Mass/Vol] 206 mg/dL High <200 [facility] Comment on above: Performed By: #### C 215, C47, C8, C4124, C406 #### [facility] [address] [place] [address] [address] [place] [address] Cholesterol in HDL [Mass/Vol] 57 mg/dL Normal >50 [facility] Comment on above: Performed By: #### C 215, C47, C8, C4124, C406 #### [facility] [address] [place] [address] [place] [address] Cholesterol in LDL [Mass/Vol] 127 mg/dL Normal <130 [facility] Comment on above: Performed By: #### C 215, C47, C8, C4124, C406 #### [facility] [address] [place] [address] [address] [place] [address] Cholesterol.total/C holesterol in HDL [Mass ratio] 3.6 {ratio} Normal <4.0 [facility] Comment on above: Performed By: #### C 215, C47, C8, C4124, C406 #### [facility] [address] [facility] [address] [place] [address] Non-HDL Chol 149 Normal LDL Goal + 30 [facility] Comment on above: Result Comment: LDL and Non-HDL goal dependent upon individual risk Performed By: #### C 215, C47, C8, C4124, C406 #### [facility] [address] [place] [address] [place] [address] Triglyceride [Mass/Vol] 109 mg/dL Normal <150 [facility] Comment on above: Performed By: #### C 215, C47, C8, C4124, C406 #### [facility] [address] [place] [address] [place] [address] VLDL-Calc 22 mg/dl Normal <30 [facility] Comment on above: Performed By: #### C 215, C47, C8, C4124, C406 #### [facility] [address] [place] [address] [place] [address] TSH w/ reflex to FT4on 06-10 TSH Qn 2.37 MIU/mL Normal 0.50-6.00 [facility] Comment on above: Order Comment: Items in this order include: Comprehensive Metabolic Panel, Lipid Panel, TSH w/ reflex to FT4, CBC with differential, HgbA1C, , , , Testing Performed By: [facility] [facility] [address] [place] [address]. [place] [address] Dr. Nichelle Morales, Plastics Worker Performed By: #### C 215, C47, C8, C4124, C406 #### [facility] [address] [place] [address] [place] [address] [place] Mammo Digital Screen bila t w shreyas(NB)on 02-24-2017 [place] Mammo Digital Screen bilat w shreyas(NB) EXAMINATION TYPE: MA Mammo Digital Screen bilat w shreyas(NB) DATE OF EXAM ORDERED: 02/24/2017 9:08 AMHISTORY: Baseline screening mammogram. No family history of breast cancer. COMPARISON: NONETECHNIQUE: Tomosynthesis imaging of bilateral breasts obtained. Computer-aided detection utilizing ICAD reader has been performed. In addition, 15 low dose images were obtained in each projection. These low-dose images were reconstructed into 1 mm thick slices and reviewed on the soft copy workstation. FINDINGS: The breasts are heterogeneously dense, which may obscure small masses. No suspicious mass, distortion, or tumor calcification.IMPRES KATIE:No mammographic evidence of malignancy.BI-RADS 1: NegativeRECOMMENDATI ON: Routine screening mammogram of both breasts in 1 year.A letter of notification will be sent to the patient.[facility] thanks you for the opportunity to care for your patient.[place] thanks you for the opportunity to care for your patient. Workstation ID: [id number] FINAL REPORT Dictated By: Toan Domínguez MD 02/24/2017 11:01Assigned Physician: Ne Domínguez MD and Electronically Signed By: Toan Domínguez MD 02/24/2017 11:08Transcribed by: BARON 02/24/2017 11:01Technologist: LRS Normal [facility] Vital Signs Date Time Vital Sign Value Performing Clinician Facility 03-14-2022 16:01-0400 Diastolic blood pressure 74 mm[Hg] [facility] Work Phone: 03-14-2022 16:01-0400 Heart rate 71 /min [facility] Work Phone: 03-14-2022 16:01-0400 Systolic blood pressure 120 mm[Hg] [facility] Work Phone: 03-14-2022 15:00-0400 Respiratory rate 14 /min [facility] Work Phone: 03-14-2022 15:00-0400 SaO2% (BldA) [Mass fraction] 98 % [facility] Work Phone: 03-14-2022 11:47-0400 Body height 167.64 cm [facility] Work Phone: 03-14-2022 11:47-0400 Body mass index (BMI) [Ratio] 31.8 kg/m2 [facility] Work Phone: 03-14-2022 11:47-0400 Body temperature 97.4 [degF] [facility] Work Phone: 03-14-2022 11:47-0400 Body weight 89.4 kg [facility] Work Phone: 10-01-2021 08:26-0400 Body height 167.6 cm Jayashree Berger [employer] Work Phone: [facility] 10-01-2021 08:26-0400 Body mass index (BMI) [Ratio] 30.67 kg/m2 Jayashree Berger CNP Work Phone: [facility] 10-01-2021 08:26-0400 Body weight 86.18 kg Jayashree Berger [employer] Work Phone: [facility] 09-20-2020 15:32-0400 Body Temperature 98.71 [degF] Garrett Casas [facility] 09-20-2020 15:32-0400 BP Diastolic 85 mm[Hg] Garrett Casas [facility] 09-20-2020 15:32-0400 BP Systolic 133 mm[Hg] Garrett Casas [facility] 09-20-2020 15:32-0400 Pulse (Heart Rate) 87 /min Garrett Casas [facility] 09-20-2020 15:32-0400 Pulse Oximetry 98 % Garrett Casas [facility] 09-20-2020 15:32-0400 Respiratory Rate 16 /min Garrett Casas [facility] 09-19-2020 09:08-0400 BMI (Body Mass Index) 30.81 kg/m2 Garrett Casas [facility] 09-19-2020 09:08-0400 Body weight 86.59 kg Garrett Casas [facility] 09-19-2020 09:08-0400 Height 167.6 cm Garrett Casas [facility] 01-18-2020 11:00-0400 Body Temperature 97.81 [degF] Garrett Casas [facility] 01-18-2020 11:00-0400 BP Diastolic 72 mm[Hg] Garrett Casas [facility] 01-18-2020 11:00-0400 BP Systolic 125 mm[Hg] Garrett Casas [facility] 01-18-2020 11:00-0400 Pulse (Heart Rate) 59 /min Garrett Casas [facility] 01-18-2020 11:00-0400 Pulse Oximetry 100 % Garrett Casas [facility] 01-18-2020 11:00-0400 Respiratory Rate 14 /min Garrett Casas [facility] 01-18-2020 07:02-0400 BMI (Body Mass Index) 29.21 kg/m2 Garrett Casas [facility] 01-18-2020 07:02-0400 Body weight 82.1 kg Garrett Casas [facility] 01-18-2020 07:02-0400 Height 167.6 cm Garrett Casas [facility] Encounters Encounter Date Encounter Type Care Provider Facility Start: 03-14-2022 End: 03-14-2022 Emergency department patient visit Reginald Avon Facility:[facility] Start: 03-14-2022 End: 03-14-2022 Emergency department patient visit [facility]-Emergency Department Start: 10-01-2021 End: 10-01-2021 ambulatory JAYASHREE GROVE [facility] Start: 10-01-2021 End: 10-01-2021 Office outpatient new 30 minutes Jayashree [facility] Work Phone: [facility] Comment on above: Tendinitis, de Quermeera miranda's (Primary Dx) Start: 09-01-2021 End: 09-01-2021 Emergency department patient visit OLIVERIO Balderas SARMAD [facility] Start: 09-19-2020 End: 09-19-2020 Anesthesia consultation Lalo Hdz Work Phone: [facility] Periop Start: 09-19-2020 End: 09-20-2020 Evaluation and management of inpatient Garrett Casas Work Phone: [facility] Oncology/Surgery Start: 09-16-2020 End: 09-16-2020 Patient encounter procedure OLIVERIO CHANG [facility] Start: 01-18-2020 End: 01-18-2020 Subsequent hospital visit by physician Garrett Casas Work Phone: [facility] Start: 01-15-2020 End: 01-15-2020 Patient encounter procedure GARRETT CASAS [facility] Start: 02-25-2017 End: 02-25-2017 Ambulatory AIDE YEPEZ Facility:[facility] Procedures Date Procedure Procedure Detail Performing Clinician Start: 03-14-2022 CT of head without contrast Start: 09-20-2020 Complete blood count (hemogram) panel - Blood by Automated count Priyank Royal Work Phone: Start: 09-19-2020 NG/OG TUBE Vicenta Bradshaw Start: 09-19-2020 Procedure on tissue specimen Garrett Casas Work Phone: Start: 09-19-2020 AIRWAY ETT Vicenta Bradshaw Start: 09-19-2020 End: 09-19-2020 HYSTERECTOMY TOTAL ROBOTIC XI Garrett Casas Work Phone: Start: 09-19-2020 Choriogonadotropin ( test) [Presence] in Urine Garrett Casas Work Phone: Start: 09-19-2020 Blood type and Indirect antibody screen panel - Blood Sal Garcia Lana Work Phone: Start: 01-18-2020 Choriogonadotropin ( test) [Presence] in Urine Garrett Casas Work Phone: Start: 04-11-2015 Microscopic observation [Identifier] in Cervix by Cyto stain Garrett Casas Plan of Treatment Date Care Activity Detail Author Start: 02-27-2022 Influenza vaccination Sequenti al Influenza Vaccine (Season Ended) [facility] Start: 04-11-2020 Screening for malign ant neoplasm of cervix Pap Smear [facility] Start: 02-28-2020 Influenza vaccinatio n given Sequential Influenza Vaccine (#1) [facility] Start: 04-11-2018 Screening for malign ant neoplasm of cervix Pap Smear [facility] Start: 12-18-2017 Administration of he rpes zoster vaccine Zoster Vaccines (1 of 2) [facility] Start: 12-18-2017 Screening for malign ant neoplasm of colon [facility] Start: 2007 Screening for malign ant neoplasm of breast Mammogram [facility] Start: 12-18-1985 Hepatitis C antibody , confirmatory test Hepatitis C Screening [facility] Start: 12-18-1985 Hepatitis C screening Hepatitis C Sc reening [facility] Start: 1983 COVID-19 Vaccine (1) COVID-19 Vaccin e (1) [facility] Start: 12-18-1982 HIV screening HIV Screening [facility] Start: 1979 Adolescent depressio n screening assessment Depression Screening (PHQ9) [facility] Start: 1979 Depression screening using PHQ-9 (Patient Health Questionnaire 9) score Depression Screening (PHQ-2/9) [facility] Start: 12-18-1972 COVID-19 Vaccine (1) COVID-19 Vaccin e (1) [facility] Start: 12-18-1970 History and physical examination, annual for health maintenance Wellness Visit [facility] Start: 1967 Screening for malign ant neoplasm of colon Colorectal Cancer Screening: Colonoscopy [facility] Start: 1967 Screening mammography [facility]ammogram [facility] Start: 1967 Tetanus vaccination Tetanus: Every 1 0yrs [facility] Patient Education Impacted Earwa x ED BPV Vertigo [facility] Work Phone: Patient referral [facility] Work Phone: Procedure on tissue specimen [facility] Comment on above: Release Upon Orderin g for 1 Occurrences starting 01/18/2020, 1 completed Payers Date Payer Category Payer Self-pay 2020 Unknown [id number] 2020 Unknown [id number] 2020 Unknown KRISTINE BCBS OUT OF STATE [facility] [id number] 2020-Present [phone] [address] [place] [address] [id number] 2017 Unknown [id number] 2014 Unknown [id number] 1967 Unknown [id number] 1967 Unknown [id number] 1967 Unknown [id number] 1967 Unknown [id number] Unknown [facility] xxxxxxxxx Effective for all dates xxxxxxxxx [id number] Unknown [id number] Social History Date Type Detail Facility Start: 01-12-2020 End: 01-18-2020 Tobacco smoking status NHIS Never smoker [facility] Start: 01-18-2020 End: 10-01-2021 Alcohol intake Current drinker of alcohol (finding) [facility] Start: 01-12-2020 Alcohol Comment rare [facility] Start: 1965 Sex Assigned At Not on file O [facility] Start: 09-20-2021 End: 09-30-2021 Exposure to SARS-CoV-2 (event) Not sure [facility] Start: 01-12-2020 End: 09-19-2020 Tobacco use and exposure Never used [facility] Start: 03-14-2022 Tobacco smoking stat us SDIS Unknown if ever smoked [facility] Work Phone: Start: 1965 Sex Assigned At Female W [facility] Work Phone: Mental Status Date Assessment Result Facility 03-14-2022 Cognitive function Appropriate;Cooperativ e [facility] Work Phone: History of Present illness Narrative 10-01-2021 Jayashree Berger CNP - 10/01/2021 12:58 PM EDT Note Date & Type Note Facility 10-01-2021 History of Presen t illness Narrative Formatting of this note is different fro m the original. Images from the original note were not included. [facility] [address] [facility] [address] [facility] [id number] Chief Complaint Patient presents with Left Wrist - Pain Geno Mendez presents to the office today with left wrist pain with no known injury. She reports that about 6/7 weeks ago she woke up and had increased pain in the wrist into the thumb. She isn't able to recall anything specific that she would have done in order for the wrist to start hurting. She did end up having to go to the ER because the pain started getting worse. She has tried wearing a brace but the one she has been wearing is rubbing against the part of the thumb that hurts the most. She states that its just enough to be annoying to her. She will have occasional sharp pain with certain motions. She also complains of some swelling along the inside portion of the wrist especially at the end of the day. She does help babysit her granddaughter and doesn't know if she has aggravated somehow while playing with her. She denies any numbness or tingling into the hand or fingers. The patient's past medical history, surgical history, social history, family history, medications and allergies were reviewed with the patient today and are available in the chart for further review. Allergies Allergen Reactions Codeine Rash Penicillins Rash Prednisone Rash Current Outpatient Medications: ascorbic acid, vitamin C, (VITAMIN C) 500 MG tablet, Take 500 mg by mouth every morning ., Disp: , Rfl: ascorbic acid/collagen hydr (COLLAGEN PLUS VITAMIN C ORAL), Take 1 tablet by mouth every morning ., Disp: , Rfl: calcium carbonate-vitamin D3 600 mg-5 mcg (200 unit) per tablet, Take 1 tablet by mouth every morning ., Disp: , Rfl: cetirizine (ZYRTEC) 10 MG tablet, Take 10 mg by mouth every morning ., Disp: , Rfl: multivit,calc,mins/iron/folic (WOMEN'S ONE DAILY ORAL), Take 1 tablet by mouth every morning ., Disp: , Rfl: rutin/hesp/bioflav/C/[id number] (BIOFLEX ORAL), Take 1 tablet by mouth every morning ., Disp: , Rfl: Past Medical History: Diagnosis Date Allergic rhinitis Arthritis Complication of anesthesia slow to wake up Osteoporosis PONV (postoperative nausea and vomiting) Past Surgical History: Procedure Laterality Date ACDF 2016 HERNIA REPAIR HYSTERECTOMY TOTAL ROBOTIC XI N/A 09/19/2020 Procedure: TOTAL ABDOMINAL HYSTERECTOMY BILATERAL SALPINGO OOPHROECTOMY; Surgeon: Garrett Casas DO; Location: [facility] Main OR; 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 HENT: Negative for congestion, hearing loss and trouble swallowing. Eyes: Negative for visual disturbance. Respiratory: Negative for chest tightness and shortness of breath. Cardiovascular: Negative for chest pain and palpitations. Gastrointestinal: Negative for abdominal pain, diarrhea, nausea and vomiting. Endocrine: Negative for polydipsia, polyphagia and polyuria. Genitourinary: Negative for decreased urine volume, difficulty urinating and hematuria. Musculoskeletal: Positive for arthralgias, joint swelling and myalgias. Skin: Negative for color change, rash and wound. Allergic/Immunologic: Negative for immunocompromised state. Neurological: Negative for dizziness, weakness, light-headedness and numbness. Hematological: Does not bruise/bleed easily. Psychiatric/Behavioral: Negative for confusion and sleep disturbance. The patient is not nervous/anxious. PE: Physical Exam Constitutional: Appearance: She is well-developed. HENT: Head: Normocephalic. Eyes: Pupils: Pupils are equal, round, and reactive to light. Cardiovascular: Rate and Rhythm: Normal rate and regular rhythm. Pulmonary: Effort: Pulmonary effort is normal. Breath sounds: Normal breath sounds. Abdominal: General: Bowel sounds are normal. Palpations: Abdomen is soft. Musculoskeletal: General: Tenderness present. Normal range of motion. Left wrist: Swelling, tenderness and snuff box tenderness present. No effusion, lacerations or crepitus. Normal range of motion. Normal pulse. Arms: Cervical back: Normal range of motion and neck supple. Skin: General: Skin is warm and dry. Neurological: Mental Status: She is alert and oriented to person, place, and time. ORTHO: Left Hand Exam Tenderness The patient is experiencing tenderness in the radial area and snuff box. Range of Motion The patient has normal left wrist ROM. Wrist Left wrist flexion: Increased pain with flexion. Muscle Strength Wrist extension: 5/5 Wrist flexion: 4/5 Clinical Informatics Physician: 5/5 Tests Phalen s Sign: negative Tinel's sign (median nerve): negative Kristi's test: positive Other Erythema: absent Scars: absent Sensation: normal Pulse: present Imaging: L Wrist: No acute fracture. Normal osseous alignment. Tiny marginal osteophytes at the thumb CMC joint. No advanced degenerative changes. Assessment/Plan: After examination and reviewing of the patient images, we discussed treatment options for the left thumb and wrist. I am giving her a difference brace for the thumb and wrist pain which doesn't rub the already inflamed area. She is to continue with ice and ibuprofen as needed. She has an allergy to cortisone so she is not able to give her an injection. We also talked about stretching the hand and wrist on a daily basis. If there is no improvement with these conservative treatments, I will start her in outpatient therapy. She verbalizes understanding and is in agreement with the treatment plan. documented in this encounter [facility] Evaluation note Note Date & Type Note Facility Evaluation note Diagnosis Tendinitis, de Quervain's- Primary documented in this encounter [facility] Evaluation note Note Date & Type Note Facility Evaluation note No assessment information availa ble [facility] Work Phone: Hospital Discharge instructions Note Date & Type Note Facility Hospital Discharge instructions Additional Instructions You have vertigo. We will treat you with a medication called Antivert for that. Zofran if you needed for nausea. If you do not you do not have to use the Zofran. You also have significant earwax impaction. The right side has been fairly cleared out. There is still a lot in the left. Use eardrops either Debrox or Cerumenex daily. He can get those mbsm-rot-sbegzpn at any pharmacy. This will help dry up and clear out the wax. Also follow-up with Dr. Jonas Miller who is an ear nose and throat doctor across the street. They can recheck your ears and clean them out. They also can do procedures to help with the vertigo if its not improving. 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 Advance Directives and Livin g Will 09/19/2020 12:00 AM Latest Code Status on File Code Status Date Activated Date Inactivated Comments Full Code 09/19/2020 2:04 PM Latest Code Status on File Code Status Date Activated Date Inactivated Comments Full Code 09/19/2020 2:04 PM 09/20/2020 8:14 PM Documents on File Type Date Recorded 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 The feeling of being dizzy, sleepy, or lightheaded is normal for 24 hours. ? It is normal to feel body aches, jaw discomfort, and sore muscles (flu like symptoms) for the next few days. ? You may notice a mild sore throat and increased mucous with coughing; this is normal. Throat lozenges may be helpful. ? DO NOT drink alcohol, drive, operate machinery, or make any important personal or business decisions for 24 hours. ? If you are unable to empty your bladder in the next 8 hours, call your surgeon and go to the nearest emergency room. ? Do deep breathing and coughing exercises 10 times every hour. ? Drink plenty of fluids. ? Resume home diet as tolerated. You may want to eat light meals for the next 24 hours to help reduce stomach upset. ? You may resume you home medications unless otherwise instructed by your surgeon. If you have difficulty breathing, swallowing, or chest pain call 911 Postoperative Nausea Prevention/Treatment ? Eat small meals ? Drink plenty of fluids ? Avoid spicy and greasy foods for at least 24 hours ? Take pain medications with food ? If vomiting occurs, start with clear liquids and advance to solid foods as tolerated Postoperative Bleeding ? A small amount of drainage or bleeding is okay. ? Some procedures require irrigation (saline), which may look like water on your dressing ? If bleeding is constant and/or soaks through your dressing, call your surgeon ? If you accidentally bump your wound and it begins to bleed, call your surgeon. ? If you have been instructed by your surgeon to use ice: Do not use ice or ice machine directly on skin Do not use ice or ice machine at night Do not use ice or ice machine for more than 30 minutes at a time Signs of Postoperative Infection ? Fever greater than 101 degrees Fahrenheit ? Redness around incision ? Warmth around the incision that does not improve with rest, ice, and elevation ? Drainage of cloudy fluid from incision ? Foul smelling discharge ? IF ANY OF THE ABOVE OCCUR, CALL YOUR SURGEON * Attachments The following attachments cannot be sent through Care Everywhere. * Hysteroscopy: Operative: Post-op (Maltese) * Pain Post-Surgery: Acute (Maltese) documented in this encounter* Instructions* Priyank Araujo, - 09/20/2020 Abdominal Hysterectomy: What to Expect at Home Your Recovery An abdominal hysterectomy removes the uterus through a large cut (incision) in the belly. Your doctor made an incision in your lower belly and took out your uterus. You can expect to feel better and stronger each day. But you might need pain medicine for a week ortwo. You may get tired easily or have less energy than usual. This may last for several weeks aftersurgery. You will probably notice that your belly is swollen and puffy. This is common. The swelling will take several weeks to go down. It may take about 4 to 6 weeks to fully recover. It's important to avoid lifting while you are recovering so that you can heal. This care sheet gives you a general idea about how long it will take for you to recover. But each person recovers at a different pace. Follow the steps below to get better as quickly as possible. How can you care for yourself at home? Activity Rest when you feel tired. Getting enough sleep will help you recover. Try to walk each day. Start by walking a little more than you did the day before. Bit by bit, increase the amount you walk. Walking boosts blood flow and helps prevent pneumonia and constipation. Avoid lifting anything that would make you strain. This may include a child, heavy grocery bags andmilk containers, a heavy briefcase or backpack, cat litter or dog food bags, or a vacuum condenser cleaner. Avoid strenuous activities, such as biking, jogging, weight lifting, or aerobic exercise, until your doctor says it is okay. You may shower. Pat the cut (incision) dry. Do not take a bath for the first 2 weeks, or until yourdoctor tells you it is okay. Ask your doctor when you can drive again. You will probably need to take 2 to 4 weeks off from work. It depends on the type of work you do and how you feel. Your doctor will tell you when you can have sex again. Diet You can eat your normal diet. If your stomach is upset, try bland, low-fat foods like plain rice, broiled chicken, toast, and yogurt. Drink plenty of fluids (unless your doctor tells you not to). You may notice that your bowel movements are not regular right after your surgery. This is common. Try to avoid constipation and straining with bowel movements. You may want to take a fiber supplement every day. If you have not had a bowel movement after a couple of days, ask your doctor about taking a mild laxative. Medicines Your doctor will tell you if and when you can restart your medicines. You will also get instructions about taking any new medicines. If you take aspirin or some other blood thinner, ask your doctor if and when to start taking it again. Make sure that you understand exactly what your doctor wants you to do. Be safe with medicines. Take pain medicines exactly as directed. ? If the doctor gave you a prescription medicine for pain, take it as prescribed. ? If you are not taking a prescription pain medicine, ask your doctor if you can take an [id number]-fpuhvle medicine. If your doctor prescribed antibiotics, take them as directed. Do not stop taking them just because you feel better. You need to take the full course of antibiotics. If you think your pain medicine is making you sick to your stomach: ? Take your medicine after meals (unless your doctor has told you not to). ? Ask your doctor for a different pain medicine. Incision care If you have strips of tape on the cut (incision) the doctor made, leave the tape on for a week or until it falls off. Or follow your doctor's instructions for removing the tape. Wash the area daily with warm, soapy water, and pat it dry. Don't use hydrogen peroxide or alcohol,which can slow healing. You may cover the area with a gauze bandage if it weeps or rubs against clothing. Change the bandage every day. Keep the area clean and dry. Other instructions You may have some light vaginal bleeding. Wear sanitary pads if needed. Do not douche or use tampons. Follow-up care is a grider part of your treatment and safety. Be sure to make and go to all appointments, and call your doctor if you are having problems. It's also a good idea to know your test resultsand keep a list of the medicines you take. When should you call for help? Call 911 anytime you think you may need emergency care. For example, call if: You passed out (lost consciousness). You have chest pain, are short of breath, or cough up blood. Call your doctor now or seek immediate medical care if: You have pain that does not get better after you take pain medicine. You cannot pass stools or gas. You have vaginal discharge that has increased in amount or smells bad. You are sick to your stomach or cannot drink fluids. You have loose stitches, or your incision comes open. Bright red blood has soaked through the bandage over your incision. You have signs of infection, such as: ? Increased pain, swelling, warmth, or redness. ? Red streaks leading from the incision. ? Pus draining from the incision. ? A fever. You have bright red vaginal bleeding that soaks one or more pads in an hour, or you have large clots. You have signs of a blood clot in your leg (called a deep vein thrombosis), such as: ? Pain in your calf, back of the knee, thigh, or groin. ? Redness and swelling in your leg. Watch closely for changes in your health, and be sure to contact your doctor if you have any problems. Where can you learn more? Log into your personal health record on [email or web address] and enter M280 in the Education box to learn more about Abdominal Hysterectomy: What to Expect at Home. Current as of: January 13, 2020 Content Version: 12.7 [employer]. Care instructions adapted under license by your healthcare professional. If you have questions about a medical condition or this instruction, always ask your healthcare professional. [employer] disclaims any warranty or liability for your use of this information. documented in this encounter History of Present Illness * Audrey Gary, RN - 09/20/2020 4:21 PM EDT 09/20/20 1621 [facility] Disposition D/C Disposition Home Agency/Destination Home Home Care Needs None HME None Same As Recommended yes Discharge home today without needs. 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 Denies any issues or problems. Pain controlled with current regimen. Ambulating and voiding spontaneously. Denies flatus. Tolerating diet without nausea. Reports one episode of emesis after ambulating back from bathroom. Desires breakfast. Denies fever, chills, chest pain, shortness of breath, vaginal bleeding. Review of Systems - The following ROS was otherwise negative, except as noted in the HPI: constitutional, respiratory, cardiovascular, gastrointestinal, genitourinary Objective: BP 104/66 (BP Location: Right arm, Patient Position: Lying) Pulse 95 Temp 98.9 F (37.2 C) (Oral) Resp 14 Ht 5' 6 (1.676 m) Wt 86.6 kg (190 lb 14.4 oz) LMP 04/21/2020 (Within Weeks) SpO2 95% BMI 30.81 kg/m General: Alert, well appearing, no acute distress Abdomen: Soft, nontender, nondistended, hyperactive bowel sounds Incision: covered with dressing, clean and dry Pelvic: Deferred Extremities: No redness or tenderness Osteopathic: no TART changes Admission on 09/19/2020 Component Date Value ABORh 09/19/2020 B Negative Antibody Screen 09/19/2020 Negative Specimen Expires 09/19/2020 09/22/2020 23:59 EST POC Preg Test, Ur 09/19/2020 Negative Will discuss with attending Associated attestation - Garrett Casas DO - 09/20/2020 6:20 AM EDT Agree with note Doing well. No complaints. Pain relatively controlled. Urinating. Awaiting flatus Encourage ambulation Hoping to go home today DKJ * Priyank Araujo, - 09/19/2020 4:31 PM EDT Post-Operative Gynecology Progress Note Assessment/Plan: 54 y.o. 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 Denies any issues or problems. Pain controlled with current regimen. Denies ambulation. Good in place with 250 clear urine. Denies flatus. Tolerating water and ice, askingfor menu to order food. Denies fever, chills, chest pain, shortness of breath, vaginal bleeding. Review of Systems - The following ROS was otherwise negative, except as noted in the HPI: constitutional, respiratory, cardiovascular, gastrointestinal, genitourinary Objective: BP (!) 142/84 (BP Location: Right arm, Patient Position: Lying) Pulse 80 Temp 97.7 F (36.5 C) (Oral) Resp 13 Ht 5' 6 (1.676 m) Wt 86.6 kg (190 lb 14.4 oz) LMP 04/21/2020 (Within Weeks) SpO2 100% BMI 30.81 kg/m General: Alert, well appearing, no acute distress Abdomen: Soft, appropriately tender to palpation, non-distended Incision: Covered with dressing, appears clean and dry Extremities: No redness or tenderness in LE, neg Kamryn's sign No intake/output data recorded. Invalid input(s): HCT, CR Will discuss with attending. documented in this encounter Assessments Diagnosis Simple endometrial hyperplasia- Primary Endometrial hyperplasia, unspecified Post-op pain Other acute postoperative pain Simple endometrial hyperplasia without atypia Chief Complaint and Reason for Visit Chief Complaint DIZZINESS Additional Source Comments INFORMATION SOURCE (unrecogn ized section and content) DATE CREATED AUTHOR 12/23/2017 [facility] DATE CREATED AUTHOR AUTHOR'S ORGANIZ ATION 06/11/2019 [facility] DATE CREATED AUTHOR AUTHOR'S ORGANIZ ATION 09/17/2020 [facility] DATE CREATED AUTHOR AUTHOR'S ORGANIZ ATION 10/01/2021 [facility] DATE CREATED AUTHOR AUTHOR'S ORGANIZ ATION 10/02/2021 [facility] DATE CREATED AUTHOR AUTHOR'S ORGANIZ ATION 03/29/2022 [facility] Lakshmi Victoria MA - 01/17/2020 1:39 PM Gifty Foster, JASE - 09/19/2020 9:10 AM EDT Nursing Notes (unrecognized section and content) Pt states she would like put in her chart that she has a fusion at C4-5 since she is being intubated. I will also let her nurse know. documented in this encounter Patient's sister, Becki, is present in the PreOp area. Her phone number is [phone], and she will take all of her belongings when the patient goes to the OR. documented in this encounter Op Note - Garrett Casas, DO - 01/18/2020 11:14 AM EDTBrief Op Note - Garrett Casas, DO - 01/18/2020 9:42 AM EDTAddendum Note - Ne Still, AUTHORS MOTIVATIONAL - 09/20/2020 9:24 AM EDT Miscellaneous Notes (unrecog nized section and content) OPERATIVE REPORT: Preoperative Diagnosis: Simple Hyperplasia without atypia Postoperative Diagnosis: Same Procedure: Hysteroscopy with D&C Surgeon: Garrett Casas DO Tabulating Supervisor: none Anesthesia: General EBL: 5cc IV Fluids: 600cc Urine Output: 100cc Findings: thickened fluffy endometrium, no definitive polyp or fibroid Specimens: Endometrial currettings Complications: None. Condition: Pt was stable to recovery room INDICATION AND CONSENT: The patient is a 54 y.o. female with history of Simple Hyperplasia on endometrial biopsy in the office. It was recommended to the patient that she have a hysteroscopy D&C. The patient understood that the risks of the procedure included, but were not limited to, visceral or vascular injury, infection, blood loss and need for transfusion, prolonged hospitalization, fluid overload, uterine perforation,and reoperation. The patient stated her understanding of the above and desired to proceed. All of her questions were answered and the consent form was signed. DESCRIPTION OF PROCEDURE: The patient was taken to the operating room with IV fluids running and pneumatic compression stockings applied to the lower extremities and turned on prior to the beginning of the procedure. General anesthesia was obtained without difficulty. The patient was then placed in the dorsal lithotomy position with yellow fin stirrups. She was prepped and draped in the normal sterile fashion. Exam under anesthesia revealed the above findings. A time-out was then performed with Garrett Casas DO present. Payan retractors were placed into the vagina. The anterior lip of the cervix was grasped with a double tooth tenaculum. The uterus was then sounded to 7 cm. The cervix was sequentially dilated using Hanks dilators. Next, the hysteroscope was inserted into the uterus and the above findings were noted. The hysteroscope was was then withdrawn. A D&C was then performed using a medium-sized curette rotating on the outward fashion. Endometrial curettings were then sent to Pathology. Next, the tenaculum was removed from the anterior lip of the cervix and excellent hemostasis was noted at the tenaculum sites. All the instruments were removed from the vagina and instrument and sponge counts were correct x2. The patient was awakened from general anesthesia and taken to the recovery room in stable condition. Garrett Casas DO was present for entire procedure. Garrett Casas DO Brief Post Operative Note Patient Name: Geno Mendez : 1965 (54 y.o.) Date of Service: 01/18/2020 CSN: [id number] Procedure(s): HYSTEROSCOPY WITH DILATION AND CURETTAGE Pre-Operative Diagnoses: * SIMPLE HYPERPLASIA Post-Operative Diagnoses: same Surgeon(s) and Role: * Garrett Casas DO - Primary Anesthesiologist: Sancho Jackson MD AUTH[employer] MOTIVATIONAL: Rell Pink CRNA Tractor Technician: Aleah Lester RN Scrub Person: ST Antonio Anesthesia Specialist: Familia Aranda Tractor Technician Orientee: Kiya Ignacio RN Scrub Person Orientee: ST Kinsey Operative findings: thickened endometrium Intra and immediate post-operative complications: none Type of anesthesia used: General Estimated blood loss: 5 mL Estimated urine output: 100 mL Specimen(s): IVF 600cc ID Type Source Tests Collected by Time Destination A : endometrial curettings Tissue Endometrium TISSUE EXAM Garrett Casas DO 01/18/2020 0740 Implant(s): * No implants in log * Drain(s): * No LDAs found * Wound(s): Wound 01/18/20 Surgical Wound Vagina (Active) Garrett Casas DO 01/18/2020 9:42 AM documented in this encounter Addendum created 09/20/20923 by Ne Still CRNA Clinical Note Signed, Cosign clinical note, Intraprocedure Blocks edited documented in this encounter AVS reviewed with patient: Yes Including new/changed medications, signs/symptoms, & when to call 911: Yes Chart checked for prescriptions, home medications/security items: Yes All remaining immunizations given prior to d/c: Yes Does patient have transportation for discharge: Yes, son Was wheelchair requested to transport pt to main lobby: Yes Medications removed from med drawer & med drawer locked: Yes Discharge instructions given to patient, all questions answered. Pt verbalizes understanding. Peripheral IV removed. Patient has all belongings. The pt is a 54 y.o. who presents for scheduled NANCY BSO. The pt tolerated the surgery without complications. See dictation for details. This incision was closed with suture. She met all milestones and was discharged to home in stable condition on POD# 1. She will f/u with Dr. Casas in 2 weeks. [facility] Utilization Review Notes DIAGNOSIS:SIMPLE HYPERPLASIA NEED FOR SURGERY:SIMPLE HYPERPLASIA DATE OF PROCEDURE:09/19 PROCEDURE:TOTAL ABDOMINAL HYSTERECTOMY BILATERAL SALPINGO OOPHROECTOMY POST OP COMPLICATIONS:none DISPOSITION: TBD POST OP Patient seen and examined. Denies any issues or problems. Pain controlled with current regimen. Ambulating and voiding spontaneously. Denies flatus. Tolerating diet without nausea. Reports one episode of emesis after ambulating back from bathroom. Desires breakfast. Denies fever, chills, chest pain, shortness of breath, vaginal bleeding. Problem: Actual or potential alteration in health Goal: Absence of healthcare acquired conditions Outcome: Partially Met Goal: Knowledge of Interdisciplinary Plan of Care Outcome: Partially Met Goal: Knowledge of Enviroment Outcome: Partially Met Problem: Pain Goal: Manage acute pain Outcome: Partially Met Goal: Manage chronic pain Outcome: Partially Met Goal: Reduced pain sensation Outcome: Partially Met Goal: Achievement of comfort function goal Outcome: Partially Met Patient oriented to the 9th floor: Yes Patient oriented to room and call system: Yes Appropriate Wrist bands present: Yes Dual RN skin check off with: Suma Lo Wound Care Consult needed?: No Support Person Identified and Sticky Note written: Yes Patient belongings documented: Yes What Belongings are present?: Jeans, plaid shirt(Button Up), kapadia bra, underwear, shorts, tennis shoes(white/green), socks, cell phone and cannoneer, red leather- like bag, bag toiletries, Hard cover Book and word search book, Stuffed animal with balloon. Discharge Plan reviewed with patient: Yes How will the patient get home when discharged: Sister Care Management consult needed?: No Associated Problem(s): Simple endometrial hyperplasia without atypia 54 yo POD#1 s/p NANCY BSO via pfanny on 09/19 - Pain regimen: Scheduled Tylenol and Toradol, prn oxy - ADAT - Voiding spontaneously - Awaiting bowel function - Pathology pending - DVT prophylaxis: SCDs, ambulation - AM labs - Encourage IS use - Continue routine postoperative care Brief Post Operative Note Patient Name: Geno Mendez : 1965 (54 y.o.) Date of Service: 09/19/2020 CSN: [id number] Procedure(s): TOTAL ABDOMINAL HYSTERECTOMY BILATERAL SALPINGO OOPHROECTOMY Pre-Operative Diagnoses: *SIMPLE HYPERPLASIA Post-Operative Diagnoses: SAME Surgeon(s) and Role: * Garrett Casas DO - Primary * Priyank Royal DO - Resident - Assisting * Yosvany Shipman DO - Resident - Assisting Anesthesiologist: Lalo Hdz MD [employer] MOTIVATIONAL: Claudia Duggan CRNA; Ne Still CRNA Student Nurse Raisin Separator Operator: Vicenta Bradshaw Tractor Technician: Radha Paiz RN Scrub Person Relief: Yadira De Los Santos RN Scrub Person: ST Caro Anesthesia Specialist: Aleah Schuler Operative findings: see dictation Intra and immediate post-operative complications: none Type of anesthesia used: General Estimated blood loss: 100 mL IVF 1200 mL Estimated urine output: 50 mL Specimen(s): ID Type Source Tests Collected by Time Destination A : UTERUS,CERVIX,BILATERAL FALLOPIAN TUBES AND BILATERAL OVARIES Tissue Uterus, Cervix, Bilateral Ovaries & Fallopian Tubes TISSUE EXAM Garrett Casas, 09/19/2020 1157 Implant(s): * No implants in log * Drain(s): Urethral Catheter Non-latex 6 Fr. (Active) Wound(s): Wound 01/18/20 Surgical Wound Vagina (Active) Wound 09/19/20 Surgical Wound Vagina (Active) Priyank Royal DO 09/19/2020 12:21 PM documented in this encounter Reason for Visit (unrecogniz ed section and content) Status Reason Specialty Diagnoses / Procedures Re ferred By Contact Referred To Contact Diagnoses Simple endometrial hyperplasia HYPERPLASIA Procedures IN LAPAROSCOPY W TOT HYSTERECTUTERUS <=250 GRAM W TUBE/OVARY TOTAL HYSTERECTOMY LAPARSCOPIC ROBOTIC ASSISTED BILATERAL SALPINGO OOPHROECTOMY Reason Comments Pain Procedure Summary Anesthesia Record (unrecogni zed section and content) Procedure Name Responsible Anesthesiologist Anesthesia Start Time Anesthesia Stop Time TOTAL ABDOMINAL HYSTERECTOMY BILATERAL SALPINGO OOPHROECTOMY (N/A Abdomen) Lalo Hdz MD 09/19/20 1035 09/19/20 1256 Events Date Time Event Comment 09/19/2020 0913 1014 AN Equip Check 1035 An Start 1035 Patient Verification 1036 An Start Data 1043 An Induction 1044 An Intubation 1046 Anesthesia Ready 1243 [facility] OR 19 1246 An Extubation 1250 an stop data 1255 Handoff I completed my SBAR handoff to the receiving nurse in the PACU/unit. 1256 An Stop MedsMeds Name Total Name Total fentaNYL 100 mcg lidocaine 2% 100 mg propofol 250 mg rocuronium 50 mg ondansetron (PF) 4 mg dexamethasone 8 mg ceFAZolin (ANCEF) IVPB 2 g (premix) 2,00 0 mg propofol 1,249.21 mg succinylcholine 140 mg vecuronium 1 mg sugammadex 200 mg ketorolac 30 mg lactated Ringers infusion 1,300 mL Agents No agents on file. Blood No blood administrations on file. Lines, Drains, and Airways Type Details Placement Removal Wound 01/18/20; 0740; Surg ical Wou; Vagina; PAD 11IN OB WRAPPED NON-STERL (x1) 01/18/20 0740 by Aleah Lester RN Peripheral IV Placement Date: 08/28 10/17; Placement Time: 0800; Orientation: Left; Location: Hand; Site Prep: Chlorhexidine ; Local Anes: Injectable; Inserted by: Harshil Steward RN; Patient Tolerance: Tolerated well 09/19/20 0800 by Gifty Lopez RN Wound 09/19/20; 1132; Surg ical Wou; Vagina; PAD 11IN OB WRAPPED NON-STERL (x1) 09/19/20 1132 by Radha Paiz RN Wound 09/19/20; 1243; Surg ical Wou; Abdomen; DRESSING 3 X 8IN TELFA STERL NON-ADHER (x1), PAD 8 X 10IN ABDOMINAL DRESSING STERL (x1), SPONGE 4 X 4IN 16-PLY GAUZE STERL CURITY 09/19/20 1243 by Radha aPiz RN Urethral Catheter Placement Date: 08/28 10/17; Inserted by: trena paiz rn; Type: Non-latex; Size: 6 Fr.; Balloon Size: 10 mL; Urine Returned: Yes (yellow ALEXIA URINE); Removal Date: 09/19/20; Removal Time: 185; Removal Reason: Per order 09/19/20 0000 by Radha Paiz RN 09/19/20 1855 by Aurora Cleveland RN ETT Placement Date: 08/28 10/17; Placement Time: 1118 (created via procedure documentation); Mask Ventilation: Mask ventilation not attempted; Type: Cuffed, Oral; Tube Size: 7 mm; Grade View: 1; Insertion Attempts: 1; Removal Date: 09/19/20; Removal Time: 12409/19/20 1118 by Vicenta Bradshaw 09/19/20 1246 by Vicenta Bradshaw Anesthesia Postprocedure Evaluation - Vicenta Ragsdale - 09/19/2020 12:55 PM EDTAnesthesia Procedure Notes - Vicenta Ragsdale - 09/19/2020 12:15 PM EDT OR Notes (unrecognized secti on and content) Anesthesia Post Evaluation * * Refer to nursing documentation for PACU vitals * * Patient participation: patient participated Mental status: sleepy but conscious Pain management: adequate Anesthetic complications: no Nausea / vomiting: no Cardiovascular status: hemodynamically stable Respiratory / airway status: airway patent, spontaneous ventilation and room air Postoperative hydration: acceptable Comment: Patient has satisfactorily recovered from her anesthetic. Associated Order(s): NG/OG Tube NG/OG Tube Start time: 09/19/2020 10:30 PM Tube type: orogastric Tube size: 18 Fr Tube location: mouth Placement verification: suction return Comments: Dc upon [facility] *See MAR for medication administration Associated Order(s): ETT Airway ETT Airway Mask ventilation: mask ventilation not attempted Technique: video laryngoscopy and intubating stylet Type: cuffed oral Tube size: 7 mm Final laryngoscope: video laryngoscope 3 Location: oral Final grade: 1 Insertion attempts: 1 Placement verification: auscultation, end tidal CO2, symmetrical chest wall movement and cuff palpation Secured at: 22 cm (measured from the lips) Secured by: tape Bite block: none Lip/tooth/tongue trauma: no Comments: Pillow placed as per pt's comfort, head in neutral position, Intubated with head in neutral position and cervical immobilization maintained, and head left as it is prior to induction for rest of the procedure. *See MAR for medication administration ANESTHESIA PREPROCEDURE EVALUATION Anesthesia Plan ASA: 2 Type: general Airway: endotracheal tube Induction: intravenous Anesthetic plan and risks as outlined in the consent discussed with: patient Use of blood products discussed with: patient Plan discussed with: Anesthesiologist and AUTHORS MOTIVATIONAL Physical Exam Airway Mallampati: III TM Distance: >3 FB Neck ROM: limited Mouth opening: >[address]: no Comment: Previous acd and fusion Cardiovascular Rhythm: regular Pulmonary - normal Neurological Mental Status: alert Dental Dental exam is normal and age appropriate Review of Systems / Medical History - Reviewed: patient summary, anesthesia history, medical history, labs / results, H&P and ECG - History of anesthetic complications (PONV) Pulmonary - negative Neurological / Psychological - negative Cardiovascular Exercise tolerance: good Gastrointestinal / Hepatic / Renal - negative NPO Status > 8 hours Endocrine / Musculoskeletal Comment: History of Present Illness Geno Mendez is a 54 y.o. female who presents for preoperative medical risk stratification consult at the request of Garrett Casas DO prior to 01/18/2020-HYSTEROSCOPY WITH DILATION AND CURETTAGE . This is a 54-year-old G2, P2 perimenopausal female with complaints of abnormal uterine bleeding biopsy findings of hyperplasia with atypia. Denies signs or symptoms of acute anemia or excessive bleeding currently. Past medical history significant for osteoarthritis and osteoporosis. Denies a history of hypertension, hyperlipidemia, cardiac or pulmonary disease, diabetes, kidney or liver disease. Denies anesthesia complications, reactions or post operative nausea or vomiting. Maintains very good functional capacity exercising regularly, exceeding 4 metabolic equivalents without cardiopulmonary symptoms. Positive: arthritis, obesity, chronic pain neck Other Negative: smoker documented in this encounter Garrett Casas DO - 09/19/2020 8:08 AM Keon Macias MD - 09/11/2020 8:30 AM EDT H&P Notes (unrecognized sect ion and content) INTERVAL HISTORY AND PHYSICAL Patient Name: Geno Mendez Admit Date: [id number] MR #: [id number] : 1965 The H&P has been reviewed and the patient has been examined. I concur with the findings of the H&P. There are no significant changes. It is appropriate to proceed with the planned procedure. Garrett Casas DO 09/19/2020 8:08 AM Assessment and Plan 1. Preop examination Medically acceptable risk for elective procedure. 2. Endometrial hyperplasia Patient provided instructions on preoperative management of medications including withholding Aspirin, NSAIDS, and specific Herbal Supplements. 3. Pre-operative cardiovascular examination This patient has no active cardiac conditions and would be considered at a low risk (less than 1%) for a major adverse cardiac event (MACE) based on a revised cardiac risk index (RCRI) score of 0. This patient has an activity level of at least 4 METS and would be considered at acceptable cardiac risk based on the 2014 [place] [employer] (ACC/AHA) guideline on Perioperative Cardiovascular Evaluation and Management of Patients Undergoing Noncardiac Surgery. 4. History of postoperative nausea and vomiting Would recommend perioperative antiemetic prophylaxis. 5. Elevated blood pressure reading without diagnosis of hypertension Patient denies any history of hypertension, current blood pressure reading although elevated is within an acceptable range for elective surgery. Patient advised on continued lifestyle modifications,continuing monitoring, and follow up with PCP. Additionally will have blood pressure monitored james-procedure. BP: (!) 143/87 6. Osteoarthritis, generalized Patient advised on avoidance of ASA and NSAID containing pain medications preoperatively. Also advised on avoidance of herbal supplements preoperatively. 7. BMI 31.0-31.9,adult Body mass index is 30.99 kg/m . Patient will require close monitoring of respiratory status while on IV opiates and I would recommend continuous pulse oximetry. Please see ALMA ROSA risk assessment. DVT prophylaxis is recommended per 2012 ACCP guidelines. BMI above recommended parameters, patient to follow-up with primary care physician for discussion of weight loss management and continued lifestyle modification. Chief Complaint Patient presents with Pre-operative Medical Risk Stratification History of Present Illness Geno Mendez is a 54 y.o. female who presents for preoperative medical risk stratification consult at the request of Garrett Casas DO prior to TOTAL HYSTERECTOMY LAPARSCOPIC ROBOTIC ASSISTED BILATERAL SALPINGO OOPHROECTOMY 09/19/20. Patient presents with Hyperplasia. Per surgeons notes she had a history of Simple Hyperplasia on endometrial biopsy in the office. It was recommended to the patient that she have a hysteroscopy D&C. Which was done 01/18/20 and showed thickened fluffy endometrium, no definitive polyp or fibroid. She states she has continued to bleed since December surgery and was using an IUD which failed. Now for surgical intervention. Surgery was originally scheduled for May, 2020 but was cancelled due to COVID restrictions. Patient denies any recent signs or symptoms suggesting active viral infection or COVID-19 exposure history. Patient with a history of anesthesia associated nausea and vomiting. She does report generalized osteoarthritis. She denies any history of hypertension. She denies any history of cardiopulmonary disease. Functional capacity is at least 4 metabolic equivalents. She does utilize Zyrtec daily for allergic rhinitis. Please see below regarding status of active medical conditions and assessment and plan regarding details of preoperative medical risk stratification. Past Medical History: Diagnosis Date Allergic rhinitis Arthritis Complication of anesthesia slow to wake up Osteoporosis PONV (postoperative nausea and vomiting) Past Medical History Pertinent Negatives: Diagnosis Date Noted Bleeding disorder (HCC) 01/12/2020 Coronary artery disease 01/12/2020 Deep vein thrombosis (HCC) 01/12/2020 Family history of bleeding disorder 01/12/2020 Glaucoma 01/12/2020 History of blood transfusion 01/12/2020 No blood products 01/12/2020 Pulmonary embolism (HCC) 01/12/2020 Sleep apnea, obstructive 01/12/2020 Past Surgical History: Procedure Laterality Date ACDF 2016 HERNIA REPAIR HYSTEROSCOPY W/ DILATATION AND CURETTAGE N/A 01/18/2020 Procedure: HYSTEROSCOPY WITH DILATION AND CURETTAGE; Surgeon: Garrett Casas DO; Location: [facility] Main OR; Service: OBGYN ORTHOPEDIC SURGERY Bilateral CTR TUBAL LIGATION Social History Tobacco Use Smoking status: Never Smoker Smokeless tobacco: Never Used Substance Use Topics Alcohol use: Yes Comment: rare Family History Problem Relation Age of Onset Heart disease Mother Pulmonary embolism Neg Hx Deep vein thrombosis Neg Hx Clotting disorder Neg Hx Anesthesia problems Neg Hx Surgical complications Neg Hx Prior to Admission medications Medication Sig Taking? Dose Freq ascorbic acid (VITAMIN C ORAL) Take by mouth daily . Yes Oral, Daily calcium carb/D3/magnesium/zinc (calcium carb-D3-mag [id number]) [id number] [id number]-mg Tab Take by mouth daily . Yes Oral, Daily cetirizine (ZYRTEC) 10 MG tablet Take 10 mg by mouth daily with breakfast . Yes 10 mg, Oral, Daily with breakfast MULTIVITAMIN WITH IRON ORAL Take by mouth daily . Yes Oral, Daily rutin/hesp/bioflav/C/[id number] (BIOFLEX ORAL) Take by mouth daily . Yes Oral, Daily VITAMIN A ORAL Take by mouth daily . Yes Oral, Daily vitamin E acetate (VITAMIN E ORAL) Take by mouth daily . Yes Oral, Daily lactobacillus combo no.11 (Probiotic) 15 billion cell CpSP Take by mouth daily . Oral, Daily Allergies Allergen Reactions Codeine Rash Penicillins Rash Prednisone Rash Review of Systems Constitution: (negative) HENT: (negative) Eyes: (negative) Respiratory: (negative) Cardiovascular: (negative) - Exercise capacity: Equal to 4 METS Gastrointestinal: (negative) Genitourinary: (negative) Musculoskeletal: (negative) Skin: (negative) Neurological: (negative) Hematological: (negative) Physical Exam BP (!) 143/87 Pulse 88 Temp 98.2 F (36.8 C) Ht 5' 6 Wt 87.1 kg (192 lb) SpO2 96% BMI 30.99 kg/m Constitutional--Conversant, in no acute distress Eyes: No Scleral Icterus, no ptosis. Pupils equal Ears/nose/mouth/throat: Nose and ears appear normal. Oropharynx Clear. Neck: Trachea Midline, No Goiter Respiratory: Clear to auscultation/normal respiratory effort. Cardiovascular: Regular rate and rhythm, No peripheral edema. Musculoskeletal: No calf tenderness with palpation, no digital cyanosis or clubbing. Skin: No rashes, Normal turgor and temperature. Psychiatric: Appropriate affect,Alert and Oriented X 3 Data Preprocedure Sleep Apnea Assessment - No Risk (0/3) Sleep Apnea in the patient's Active Problem List or Medical History: no 1. History of apparent airway obstruction during sleep: (1 point for this category) Do you snore frequently, or snore loud enough to be heard through a closed door?: no Do you awaken from sleep with a choking sensation or have periods during sleep when someone has observed you pausing between breaths?: no 2. Somnolence of the patient: (1 point for this category) Do you find yourself frequently sleepy despite adequate hours of sleep the night before?: no Do you fall asleep easily while: watching TV, reading, riding in or driving a car?: no 3. Predisposing physician characteristics: (1 point for this category, 2 points if the BMI ? 40) BMI (Calculated): 31 Neck Circumference (inches): 15 inches A copy of this report has been made available to the referring physician in the hospital's EMR and/or by being faxed to the surgeon's office/surgery center. documented in this encounter Care Teams (unrecognized sec tion and content) Prosthetist Relationship Specialty Start Date End Date Sarmad Oliverio Medranoan, DO [address] [place] [address] PCP - General Family Medicine 01/12/20 Goals (unrecognized section and content) Goals may be documented in a n alternate section FOR RECORDS PERTAINING TO PATIENTS WHO ARE OR HAVE BEEN ENROLLED IN A CHEMICAL DEPENDENCY/SUBSTANCEABUSE PROGRAM, SOME INFORMATION MAY BE OMITTED. This clinical summary was aggregated from multiple sources. Caution should be exercised in using it in the provision of clinical care. This summary normalizes information from multiple sources, and as a consequence, information in this document may materially change the coding, format and clinical context of patient data. In addition, data may be omitted in some cases. CLINICAL DECISIONS SHOULD BE BASED ON THE PRIMARY CLINICAL RECORDS. [email or web address] provides no warranty or guarantee of the accuracy or completeness of information in this document.
--- NOTE | 2025-06-17 17:57 | EX.ED.DYSGE1 ---
HPI History of Present Illness Chief Complaint: Cough Detail of Chief Complaint: Cough and left-sided chest pain Informant: patient Onset/Context/Timing Onset: Weeks (Onset of upper respiratory tract infection symptoms end of April.) Context: Sudden Onset Timing: Intermittent and Waxes and wanes Quality: Pain Location: Left eighth rib anterior axillary line Current Severity: Mild Maximum Severity: Severe Worsened by: Coughing, deep breathing or movement. Relieved by: Nothing Associated Symptoms Associated Symptoms: Last 2 weeks nonproductive cough Narrative Narrative: Patient is a 59-year-old woman. She developed flulike symptoms that started the end of April. She had congestion, rhinorrhea, productive cough. She was seen at the [facility] first week of May and placed on a course of doxycycline. She has completed the course of doxycycline. She presents because of cough that is painful. She has pain with deep breathing and with movement. She has no history of VTE. She has no contraindication to NSAIDs. I.e. she has no history of diabetes, kidney disease, peptic ulcer disease and is not on anticoagulant. There is no history of trauma. Patient denies GI symptoms. Prior similar symptoms: Yes Recent Illness/Hospitalization: Yes [facility] Medical History Abdominal hernia Carpal tunnel syndrome on both sides Home Medications ?Medication ?Instructions ?Recorded ?Last Taken ?Type Bioflex 03/14/22 Unknown History Multi Vitamin 03/14/22 Unknown History calcium-vitamin D3 03/14/22 Unknown History meclizine 25 mg chewable tablet 25 mg PO TID #20 tabs 03/14/22 Unknown Rx (Antivert) ondansetron 4 mg disintegrating 4 mg PO Q6H #7 tabs 03/14/22 Unknown Rx tablet vitamin B complex 03/14/22 Unknown History oxycodone-acetaminophen 5 mg-325 1 tab PO Q6H PRN PRN pain 5 days 06/17/25 Unknown Rx mg tablet #20 TABLETS Allergy/AdvReac Type Severity Reaction Status Date / Time codeine Allergy Hives Verified 06/17/25 17:38 influenza virus vaccine ts Allergy Other Verified 06/17/25 17:38 [id number] (36 mos,up) (From Fluarix) Penicillins Allergy Hives Verified 06/17/25 17:38 prednisone Allergy Hives Verified 06/17/25 17:38 Surgical History H/O dilation and curettage H/O: hysterectomy Tubal ligation status Social History Smoking Status: Never smoker ROS ROS ED Constitutional Constitutional ED: Denies chills, fever(s), subjective, sweats or weight loss Eyes Eyes: Denies blurry vision or change in vision ENT ENT ED: Denies ear pain or rhinorrhea Cardiovascular Cardiovascular: Denies chest pain, orthopnea, palpitations or paroxysmal nocturnal dyspnea Respiratory/Chest Respiratory/Chest: Reports cough; Denies dyspnea, dyspnea on exertion, orthopnea, paroxysmal nocturnal dyspnea or sputum Gastrointestinal Gastrointestinal: Denies abdominal pain, nausea or vomiting Genitourinary Genitourinary ED: Denies dysuria or hematuria Musculoskeletal Musculoskeletal: Denies arthralgias, back pain or myalgias Integumentary Denies rash Neurologic Neurologic: Denies headache(s) or paresthesias Psychiatric Psychiatric: Denies anxiety or depression Endocrine Endocrinology: Reports cold intolerance and heat intolerance Hematologic/Lymphatic Hematologic/Lymphatic: Reports systems reviewed and no addt'l complaints, except as documented EXAM Physical Exam Const Vital Signs: 06/17/25 17:36 06/17/25 17:45 Temperature 97.1 F L Temperature Source Temporal Pulse Rate 87 Respiratory Rate 18 Blood Pressure 141/83 H Blood Pressure Mean 102 Pulse Ox 98 Oxygen Delivery Method Room Air Room Air Positive well nourished and well developed General Appearance ED: well developed and NAD; Negative for cyanotic, diaphoretic or pallor HEENT Reports moist mucous membranes Eyes PERRL and EOMs intact bilaterally General Eye ED: Negative for pale conjunctiva or scleral icterus Resp normal respiratory effort and clear to auscultation bilaterally Resp Narrative: Once with deep breathing. She has pain outpatient anterior axillary line over rib eighth. There is no crepitus subcutaneous air. She has significant discomfort laterally with AP pressure of the sternum. She does have history of osteoporosis. Cardio regular rate, regular rhythm, S1 normal heart sound, S2 normal heart sound and no murmurs GI normal to inspection, nondistended, normoactive bowel sounds, non-tender, non-distended and no masses; Negative for hepatosplenomegaly GI Narrative: Palpation of the upper abdomen causes her to cough which increases her pain. Extremity normal to inspection General Extremety ED: Negative for edema or tenderness General Extremity: Negative for edema Neuro oriented x3 and CN's II-XII intact bilaterally Sensorium / Orientation: alert Skin no rashes or lesions noted, no wounds and skin turgor normal General Skin Exam: Negative for elasticity normal, jaundice or pallor MDM MDM MDM Narrative Medical decision making narrative: Patient history and physical consistent with upper respiratory tract infection with persistent cough. With history of osteoporosis concerns may have a fractured rib. Also need to set her pneumonia versus pleurisy. History and physicals not consistent with pulmonary embolus. Lab Data Attestation: I reviewed the patient's lab results. Lab results narrative: CBC is normal. Basic metabolic panel is unremarkable. BUN/creatinine ratio slightly elevated 21-1. BUN and creatinine are both normal. Labs: Laboratory Results - last 24 hr 06/17/25 18:00 WBC 7.3 RBC 4.37 Hgb 13.5 Hct 40.0 MCV 91.5 MCH 30.9 MCHC 33.8 RDW Std Deviation 42.7 RDW Coeff of Mey 12.8 Plt Count 292 MPV 10.4 Immature Gran % (Auto) 0.100 Neut % (Auto) 54.5 Lymph % (Auto) 34.6 [place] % (Auto) 8.0 Eos % (Auto) 2.1 Baso % (Auto) 0.7 Absolute Neuts (auto) 4.0 Absolute Lymphs (auto) 2.51 Nucleated RBC % 0 Sodium 142 Potassium 4.2 Chloride 103 Carbon Dioxide 27.0 Anion Gap 12 BUN 19 Creatinine 0.92 Estim Creat Clear Calc 72.68 Est GFR (MDRD) Non-Af 73 BUN/Creatinine Ratio 21.0 H Glucose 92 Calcium 9.6 Radiography Chest X-Ray - ED: 2 View, Normal, Heart, Lungs, Mediastinum, Bony Structures (Question of 1/8 rib fracture.) and No Acute Disease Diagnostic Testing: Clinical Impression(s) from Imaging Studies Chest X-Ray 06/17/25 18:11 IMPRESSION: Question left posterior T8 and T9 rib deformities; consider dedicated rib series or CT for further evaluation. No focal consolidations. Reading Location: [id number] Radiologist reviewed x-ray and has concern for 8th and 9th rib fracture. Differential Diagnosis Chest pain/SOB: pulmonary embolism Reason(s) PE less likely: Positive for Well's <3, not tachycardic and not hypoxic, pneumothorax Reason(s) pneumothorax less likely: Positive for bilateral breath sounds, pneumonia Reason(s) pneumonia less likely: Positive for no infiltrate on CXR, no elevation in WBC count, no noted fever, symptoms not consistent with acute infection and other (Patient has fractured 8th and 9th rib), aortic dissection Reason(s) Aortic dissection less likely:: Positive for normal vascular exam, no history of HTN, normal neurological exam, no significant risk factors for dissection, no widened mediastinum on CXR, pain not sudden onset, no ripping/tearing pain, no pain to back, blood pressure appropriate in ED and other (Fractured ribs) and COPD Reason(s) COPD less likely: Positive for no significant wheezing on exam, no tachypnea, no conversational dyspnea, normal air movement noted on auscultation on lungs and other (Patient does not have a history of COPD and is a non-smoker.) Discharge Plan Triage Chief Complaint: Cough ED Provider: Josh Cho Dx/Rx/DC Orders Clinical Impression: Ribs, multiple fractures, Osteoporosis, Cough, Elevated blood-pressure reading without diagnosis of hypertension Instructions: ED Rib Fracture, ED Hypertension, To Be Confirmed Prescriptions: New oxycodone-acetaminophen 5-325 mg tablet 1 tab PO Q6H PRN PRN (Reason: pain) 5 Days Qty: 20 0RF No Action Bioflex Multi Vitamin calcium-vitamin D3 vitamin B complex meclizine [Antivert] 25 mg tablet,chewable 25 mg PO TID Qty: 20 0RF ondansetron 4 mg tablet,disintegrating 4 mg PO Q6H Qty: 7 0RF Stand Alone Forms: [facility] Referral Primary Care Provider: Oliverio Bañuelos Referrals: Oliverio Bañuelos DO [Primary Care Provider, Family Practice] - 1-2 Weeks Jose Lees MD [Med Staff - Courtesy Staff, Endocrinology] - 1 Week Activity Restrictions/Additional Instructions: 1. Use incentive spirometer every 1-2 hours while awake. 2. Take pain medicine as prescribed 3. You were referred to Dr. Lees with your history of osteoporosis for further evaluation and possible treatment 4. You need to follow-up with your doctor for blood pressure check in 1 to 2 weeks when you are not in is much pain. Print Language: Croatian Disposition Disposition: Home, Self Care
[2025-06-17 18:05] LABS: Hematocrit 40.0 % (37-47); Hemoglobin 13.5 g/dL (12.0-15.0); Immature Granulocytes Count 0.010 X10^3/uL (0.0-0.0); Mean Corp Hgb Conc 33.8 g/dL (32-36); Mean Corpuscular Volume 91.5 fL (81-99); Mean Platelet Vol. 10.4 fl (6.2-12.0); NRBC Flagged by Analyzer 0 % (0-5); Platelet Count 292 K/mm3 (150-450); RBC Distribution Width CV 12.8 % (11.6-14.6); RBC Distribution Width SD 42.7 fl (35.1-43.9); Red Blood Count 4.37 M/mm3 (4.2-5.4); White Blood Count 7.3 K/mm3 (4.4-11.0)
--- NOTE | 2025-06-17 18:08 | ED.RN ---
PT REFUSES IV. REQUESTS TO JUST HAVE A BLOOD DRAW. DR ARAGON
--- NOTE | 2025-06-17 18:11 | RAD_ITS ---
PROCEDURE: CHEST PA AND LATERAL 06/17/2025 REASON FOR EXAM: NONPRODUCTIVE COUGH, LEFT EIGHTH RIB PAIN TECHNIQUE: Procedure Code: RADCXR Modality: DX Procedure: CHEST PA AND LATERAL FINDINGS: No focal consolidation. No pleural effusion or pneumothorax. Cardiac silhouette is within normal limits. Question left posterior T8 and T9 rib deformity; consider dedicated rib series or CT for further evaluation. RAD/Chest PA and Lateral IMPRESSION: Question left posterior T8 and T9 rib deformities; consider dedicated rib serie s or CT for further evaluation. No focal consolidations. Reading Location: [id number]
[2025-06-17 18:22] LABS: Anion Gap 12 (5-15); BUN 19 mg/dL (4-19); BUN/Creat Ratio 21.0 RATIO (10-20); Calcium,Total 9.6 mg/dL (7.6-11.0); Carbon Dioxide 27.0 mmol/L (21.0-32.0); Chloride 103 mmol/L (98-108); Estimated Creatinine Clearance 72.68 ml/min (50-250); Glucose 92 mg/dL (70-99); Potassium 4.2 mmol/L (3.3-5.1)
[2025-06-17 19:04] VITALS: BP 161/106; PULSE 78; RESP 16; TEMP 36.6; O2SAT 100
== END 2025-06-17 19:25 | disposition home or self-care (01) ==
PROVIDERS: Emergency Provider Emergency Medicine; PCP Family Medicine; Visit Provider Emergency Medicine
DX: S22.42XA Multiple fractures of ribs, left side, initial encounter for closed fracture (principal); R05.9 Cough, unspecified; R03.0 Elevated blood-pressure reading, without diagnosis of hypertension; M81.0 Age-related osteoporosis without current pathological fracture; X58.XXXA Exposure to other specified factors, initial encounter
CPT/HCPCS: 36415; 71046; 80048; 85025; 99283